=== PATIENT | female | born 1980 | race Caucasian/White ===

== ENCOUNTER 2025-01-21 08:40 | Inpatient (IN) | payer OTHER, SELFPAY ==
[2025-01-20 20:11] VITALS: BP 143/98
[2025-01-20 20:32] LABS: % Basophils 0.4 % (0-2); % Eosinophils 0.4 % (0-6); % Immature Granulocytes 0.5 % (0-0.5); % Lymphocytes 10.2 % (20.5-51.1); % Monocytes 6.9 % (1.7-9.3); % Neutrophils 81.6 % (42.2-75.2); Absolute Basophils 0.1 10^3/uL (0-0.2); Absolute Eosinophils 0.1 10^3/uL (0-0.7); Absolute Immature Granulocytes 0.1 10^3/uL (0-0.05); Absolute Lymphocytes 1.7 10^3/uL (1.2-3.4); Absolute Monocytes 1.1 10^3/uL (0.1-0.6); Absolute Neutrophils 13.4 10^3/uL (1.4-6.5); Hematocrit 42.1 % (37.0-47.0); Hemoglobin 14.3 g/dL (12.0-16.0); Mean Corpuscular Hgb 30.5 pg (27.0-31.0); Mean Corpuscular Volume 89.8 fL (81.0-99.0); Mean Platelet Volume 9.2 fL (7.4-10.4); Nucleated Red Blood Cells % 0 %; Platelet Count 258 10^3/uL (130-400); Red Blood Cell Count 4.69 10^6/uL (4.20-5.40); Red Cell Dist. Width 13.2 % (11.5-14.5); Urine Albumin Negative (Neg - Trace); Urine Bilirubin Negative (Negative); Urine Character Clear (Clear); Urine Color Yellow; Urine Glucose Negative (Negative); Urine Ketone 2+ (Negative); Urine Leukocyte Negative (Negative); Urine Nitrite Negative (Negative); Urine Occult Blood 3+ (Negative); Urine Specific Gravity 1.005 (<1.030); Urine Urobilinogen Negative (Neg - 1+); White Blood Cell Count 16.4 10^3/uL (4.8-10.8)
[2025-01-20 20:40] LABS: Urine Squamous Cell 16-20 /LPF (Few)
[2025-01-20 20:41] LABS: HCG, Serum Qualitative Screen Negative; Urine Bacteria Few (Negative)
[2025-01-20 20:53] LABS: ALT (SGPT) 19 U/L (0-35); AST (SGOT) 21 U/L (14-36); Albumin 4.3 g/dl (3.5-5.0); Alkaline Phosphatase 89 U/L (38-126); Blood Urea Nitrogen 6 mg/dl (7-17); Calcium 9.3 mg/dl (8.4-10.2); Carbon Dioxide 23 mmol/L (22-30); Chloride 105 mmol/L (98-107); Glucose 113 mg/dl (70-99); Lipase 511 U/L (23-300); Potassium 3.9 mmol/L (3.5-5.1); Sodium 136 mmol/L (135-145); Total Protein 7.7 g/dl (6.3-8.2); eGFR > 60.00
[2025-01-20 23:30] VITALS: BP 145/84
[2025-01-20 23:33] VITALS: BMI 28.3
[2025-01-21] VITALS (7 sets, daily range): BP systolic 122–143; BP diastolic 74–94; BMI 32.8
--- NOTE | 2025-01-21 00:07 | ED.GENMED ---
History of Present Illness
General
Chief Complaint: Abdominal Pain
Source: patient
Exam Limitations: none
Time Seen by Provider: 01/20/25 23:41
Nursing documentation reviewed up to this point in time: agreed with
History of Present Illness
History of Present Illness:
This is a 44-year-old woman with history of GERD, gastritis, ovarian cysts, kidney stones. Prior history of cholecystectomy, x 2. She presents with epigastric, right upper quadrant pain that began mildly 3 nights ago and has been
persistent, progressively worse and much worse throughout the day today. She admits to brief intermittent nausea but has had no vomiting. Moderately decreased appetite today but has been tolerating fluids well. She denies improvement nor
worsening of pain with oral intake. She denies back pain or flank pain. She denies lower abdominal pain. No dysuria nor urgency nor hematuria. She denies diarrhea nor constipation. No cough no shortness of breath. No fever no chills. She did
take 1 ibuprofen 2 days ago, other than this denies significant NSAID use. She admits to drinking alcohol 4 days ago celebrating her anniversary, other than this denies significant alcohol consumption.
She takes no prescription medicines on a daily basis. Takes tumeric for chronic joint pains. She had been maintained on Nexium in the past.
Last menstrual period January 02, normal and on time.
Past History
Past History
ED Past Medical History: GERD and Other (Ovarian cysts, Kidney stone)
ED Past Surgical History: Cholecystectomy, (X2) and Other (DNE, colonoscopy, endoscopy, exploratory laparotomy many, and wisdom teeth extraction)
Social History
Tobacco: Non-smoker
Alcohol: Occasional
Personal:
Living: with family
Employment: Not employed
Family History
Family History: Other (Noncontributory)
Phy Exam
Physical Exam
Physical Exam:
GENERAL: 44-year-old woman appears her stated age, awake and alert, pleasant, appears in no acute distress. Vital signs within normal limits
EYE: pupils equal. anicteric
NECK: Supple, nontender, no meningismus, no significant adenopathy.
ENT: oral mucosa is moist.
CARDIAC: Regular rate and rhythm. no murmur.
LUNGS: Clear breath sounds bilaterally, no acute respiratory distress, no wheezes/rales/rhonchi
ABDOMEN: Soft, nondistended, Mild to moderate tenderness epigastric as well as right upper quadrant without rebound or guarding no rigidity. no cvat. normoactive BS. No palpable masses.
NEUROLOGICAL: Alert and oriented x3, no focal neuro deficits. Gait is steady.
SKIN: Warm and dry, normal color, skin intact. No rash.
MUSCULOSKELETAL: No C/C/E. peripheral pulses are full and equal b/l. No palpable tenderness.
PSYCH: Normal and appropriate interaction.
Course
Orders/Labs/Results
Orders:
Orders
01/20/25 20:14
Test Result ONCE
01/20/25 20:25
Complete Blood Count/With Diff Urgent
Comprehensive Metabolic Panel Urgent
HCG, Serum Qualitative Screen Urgent
Lipase Urgent
Urinalysis Reflex To Culture Urgent
Date Specimen was Collected: 01/20/25
Time Specimen was Collected: 20:14
Urine Microscopic Reflex Cult Urgent
01/20/25 23:54
Pantoprazole [Protonix IV] 40 mg IV NOW STA
01/21/25 00:00
CT Abd/pelvis W Iv Cont Urgent
Reason For Exam: epigastric/RUQ pain x 3 d
01/21/25 00:23
Diphenhydramine [Benadryl] 50 mg IV NOW STA
Hydrocortisone Sod Succinate [Solu-Cortef] 200 mg IV NOW STA
Abnormal Lab Results
01/20/25
20:25
WBC 16.4 H 10^3/uL
(4.8-10.8)
Abs Immat Gran (auto) 0.1 H 10^3/uL
(0-0.05)
Absolute Neuts (auto) 13.4 H 10^3/uL
(1.4-6.5)
Absolute Monos (auto) 1.1 H 10^3/uL
(0.1-0.6)
Neutrophils % 81.6 H %
(42.2-75.2)
Lymphocytes % 10.2 L %
(20.5-51.1)
BUN 6 L mg/dl
(7-17)
Glucose 113 H mg/dl
(70-99)
Lipase 511 H U/L
(23-300)
Urine Ketones 2+ A
(Negative)
Ur Occult Blood Reflex 3+ A
(Negative)
Urine RBC 3-6 A /HPF
(0-2)
Urine Bacteria (Reflex) Few A
(Negative)
01/20/25 20:25
01/20/25 20:25
Vital Signs
Initial and Last Documented VS:
Initial Vital Signs
Temp Pulse Resp BP Pulse Ox
98.3 F 97 16 143/98 98
01/20/25 20:11 01/20/25 20:11 01/20/25 20:11 01/20/25 20:11 01/20/25 20:11
Last Documented Vital Signs
Temp Pulse Resp BP Pulse Ox
98.3 F 94 17 143/86 93
01/20/25 20:11 01/21/25 00:22 01/21/25 02:17 01/21/25 01:00 01/21/25 01:30
MDM/Problems Addressed
Differential Diagnosis Includes:
Concern for gastroduodenitis, pancreatitis, common bile duct stone, ureteral calculus, pyelonephritis, colitis.
As patient has had no lower abdominal pain and no appreciable tenderness to mid to lower abdomen, appendicitis, ovarian cyst are unlikely. She has had no vomiting, moving her bowels normally thus small bowel obstruction is much less likely.
Labs are remarkable for elevated white blood cell count of 16.4, chemistries are unremarkable save for mildly elevated lipase of 511. Other than this LFTs within normal limits. hCG is negative. Urinalysis positive for 3-6 RBCs, no definitive
evidence of UTI.
Will give an IV dose of Protonix. Patient has been offered pain medication which she declines.
Will check CT abdomen pelvis with IV contrast.
Upon review of list of allergies there is IV contrast dye. Patient states she had few red blotches to her neck after IV contrast in the past. No shortness of breath or cough. She admits that she is unsure if she has a true dye allergy.
Nonetheless will pretreat for contrast allergy.
*Radiology
Radiology exam reviewed: radiology read reviewed
*Pulse Oximetry
Patient hypoxic: no
*Critical Care Note
Total Time (30-74mins, 75-104mins- exclusive of procedures): Not Applicable
Update Note
Update Note:
02:40
CAT scan shows acute pancreatitis at head of the pancreas that appears to be secondary to acute duodenitis with concern for deep duodenal ulcer. There is no evidence of perforation, no evidence of free air.
Patient continues with mild to moderate tenderness epigastric, right upper quadrant.
Will plan to admit to hospital service, maintain n.p.o. status, IV fluids. Will continue PPI. Will trial an IV dose of Tylenol.
ED Attending Note
-
Portions of this chart may have been created with voice recognition software.� Occasional wrong word or��sound alike� substitutions may have occurred due to the inherent limitations of voice recognition software.
Discharge Plan
Departure
Patient Disposition: Admit
Date of Disposition: 01/21/25
Time of Disposition: 02:42
Admit to: Med/Surg
Admit to doctor: Artemio
Presentation/result/management discussed w/ accepting MD/DO: Hospitalist
Condition: Fair
Discharge Problem:
Acute pancreatitis, Acute duodenitis with concern for ulcer
Prescriptions:
No Action
esomeprazole magnesium [Nexium] 40 MG capsule,delayed release(DR/EC)
40 mg PO DAILY
ranitidine HCl [Zantac] 150 MG tablet
150 mg PO HS
vit27,[id number]-EW 1 EACH tablet
1 ea PO DAILY
nitrofurantoin monohyd/m-cryst 100 MG capsule
100 mg PO BID Qty: 9 0RF
Referrals:
NONE,* [Family Provider] -
Interventions
Interventions:
*Risk Screen - Suicide Last Done: 01/20/25 20:11
*General Assessment Last Done: 01/20/25 20:11
*Neglect/Abuse Screening Last Done: 01/20/25 20:11
*ED COVID-19 Vaccine History Last Done: 01/20/25 20:11
NX-Fxuyvg-Lrtiujhnds Assessment Last Done: 01/20/25 23:35
Discharge Date and Time
Print Language: MAORI
[2025-01-21] MEDS: PROTONIX IV 40 MG IV ×2 (00:18→08:22)
[2025-01-21] MEDS: BENADRYL 50 MG IV (00:29)
[2025-01-21] MEDS: SOLU-CORTEF 200 MG IV (00:29)
[2025-01-21] MEDS: NSS 1000 IV ×4 (02:55→21:04)
[2025-01-21] MEDS: OFIRMEV 100 IV ×2 (02:55→21:08)
--- NOTE | 2025-01-21 03:12 | HPS.HSE ---
Family Physician
-
Family Physician: * NONE
Chief Complaint
-
Abdominal pain
History of Present Illness
This is a 44-year-old female with past medical history of GERD presenting to the emergency department with approximately 4 days of epigastric abdominal pain now radiating to the back.
Patient reported that she had a drink with spouse 1 day prior to onset of symptoms. Prior to that she had not had a drink in 4 weeks. She states she rarely drinks at all. She reports onset of epigastric pain sense of fullness of the abdomen and
decreased appetite some bloating and very mild nausea without vomiting. She denies any diarrhea. She denies any fevers or chills. She denies any urinary symptoms. She felt she might of had recurrence of nephrolithiasis when the pain radiated to
the side and the back. She has a history of cholecystitis and is status post cholecystectomy several years ago. She also reports history of gastritis and GERD for which she had been previously on proton pump inhibitor (Nexium) with resultant side
effects including headache until she was transitioned to Pepcid which she eventually weaned off. She denies any any melena or hematochezia.
She denies family history of gallstones.
In the emergency department she was afebrile, blood pressure was 132/86 with a pulse of 94 and she was satting 1% on room air.
White count was 16.4, hemoglobin 14.3 and a platelet count of 258. Electrolytes were all normal. BUN/creatinine were normal. Lipase was elevated at 5 1. LFTs was normal. UA was negative. A CT of the abdomen pelvis showed acute pancreatitis of
the pancreatic head, linear abnormality in the head/uncinate that appears to be in contiguity with the duodenal wall thought due to an ulcer or duodenal diverticulitis as an underlying cause of pancreatitis
Medical History
Past Medical History
Past Medical History: Reports GERD and Other (nephrolithiasis)
Past Surgical History: Reports Cholecystectomy and
Social History
Tobacco: Non-smoker
Alcohol: Occasional
Drug: None
Family History
Family History: Not pertinent
Allergies / Home Medications
Allergies reflects when Allergies were last updated in [facility] [facility].
Home Medications with original date entered in [facility] [facility]
Allergy/Medication List:
Allergies
Allergy/AdvReac Type Severity Reaction Status Date / Time
meperidine HCl [From Demerol] Allergy Unknown Anaphylaxis Verified 08/29/19 01:44
doxycycline Allergy Unknown Verified 08/29/19 01:44
Sulfa (Sulfonamide Allergy Hives Verified 01/21/25 00:20
Antibiotics)
IV contrast dye Allergy Unknown Hives Uncoded 08/29/19 01:44
Home Medications
No Meds current home medications
Review of Systems
-
Constitutional: Reports No Symptoms
EENT: Reports No Symptoms
Respiratory: Reports No Symptoms
Cardiac: Reports No Symptoms
Abdomen/GI: Reports Abdominal Pain
: Reports No Symptoms
Musculoskeletal: Reports No Symptoms
Skin: Reports No Symptoms
Neurological: Reports No Symptoms
Endocrine: Reports No Symptoms
Hematologic/Lymphatic: Reports No Symptoms
Psych: Reports No Symptoms
Physical Exam
Vital Signs
Vital Signs
Temp Pulse Resp BP Pulse Ox
98.3 F 94 17 143/86 93
01/20/25 20:11 01/21/25 00:22 01/21/25 02:17 01/21/25 01:00 01/21/25 01:30
Physical Exam
General: Well Developed, Well Nourished and No Apparent Distress
HEENT: NormoCephalic, Moist mucous membranes and Atraumatic
Respiratory: Clear
Cardiac: S1/S2 and Regular Rhythm; No Murmur or Rub
GI: Soft, Non Tender, Non Distended and Normal Bowel Sounds; No Organomegaly
Rectal: Deferred by Provider
Musculoskeletal: No Clubbing, No Cyanosis and No Edema
Skin: No Rash
Neuro: Nonfocal/grossly intact
Hematologic/Lymphatic: No Lymphadenopathy
Laboratory Results
-
01/20/25 20:25
01/20/25 20:25
Laboratory Results
Total Bilirubin 1.0 mg/dl (0.2-1.3) 01/20/25 20:25
AST 21 U/L (14-36) 01/20/25 20:25
ALT 19 U/L (0-35) 01/20/25 20:25
Alkaline Phosphatase 89 U/L (38-126) 01/20/25 20:25
Lipase 511 U/L (23-300) H 01/20/25 20:25
Data Reviewed
-
CT Scan: Report Reviewed by me
Lab Data: Labs Reviewed by me
Old Records: Reviewed
Impression/Plan
-
IMPRESSION:
44 y.o healthy female with acute pancreatitis as well as possible duodenal ulcer/diverticulum as contributing to the pancreatitis. She reports occasional etoh, she has no gallstones, uses nsaids about 3 days a month for menstrual cramps. Has no
diabetes. She is s/p cholecystectomy.
PLAN:
1. Duodenal ulcer with pancreatitis - Stable. No perforation. No evidence of bleeding. No classical etiology of pancreatitis
- admit to med/surg observation
- pain control for now
- avoid nsaids
- famotidine iv bid
- h/o headaches to nexium and likely all ppis
- CT scan suggests a scope is recommended, npo for now except sips and ice chips
- GI consultation
DVT PPX - SCDs
[2025-01-21 05:58] LABS: Hematocrit 41.4 % (37.0-47.0); Hemoglobin 14.1 g/dL (12.0-16.0); Mean Corp Hgb Conc. 34.1 g/dL (33.0-37.0); Mean Corpuscular Hgb 30.9 pg (27.0-31.0); Mean Corpuscular Volume 90.6 fL (81.0-99.0); Mean Platelet Volume 9.8 fL (7.4-10.4); Platelet Count 273 10^3/uL (130-400); Red Blood Cell Count 4.57 10^6/uL (4.20-5.40); Red Cell Dist. Width 13.2 % (11.5-14.5); White Blood Cell Count 14.7 10^3/uL (4.8-10.8)
[2025-01-21 06:25] LABS: Blood Urea Nitrogen 7 mg/dl (7-17); Calcium 9.2 mg/dl (8.4-10.2); Carbon Dioxide 24 mmol/L (22-30); Chloride 107 mmol/L (98-107); Estimated Creatinine Clearance 91 ml/min; Glucose 141 mg/dl (70-99); Potassium 4.6 mmol/L (3.5-5.1); Sodium 139 mmol/L (135-145); eGFR > 60.00
[2025-01-21] MEDS: NSS (PRESERVATIVE FREE) 10 ML IV (08:21)
[2025-01-21] MEDS: TYLENOL 650 MG PO (08:23)
[2025-01-21] MEDS: ZOSYN 50 IV ×3 (09:12→20:04)
[2025-01-21] MEDS: PROTONIX 100 IV ×2 (10:51→20:04)
--- NOTE | 2025-01-21 11:02 | CON.GI ---
Consultation
-
Date/Time Consultation Requested: 01/21/2025
Date/Time Consultation Performed: 01/21/2025
Requesting Provider: Dr. Lunsford
Performing Provider: Dr. Sanders
Reason for Consultation: Abdominal pain
Medical History
Chief Complaint / HPI
Chief Complaint: Right-sided abdominal pain
History of Present Illness:
44-year-old female with no significant past medical history except history of previous GERD and gallstones status postcholecystectomy 2012 presenting with complaints of right upper quadrant abdominal pain starting last Wednesday. As per patient,
she was doing well prior to that and last Wednesday started having achy sensation in the right upper quadrant/epigastric area and radiating to the right upper back, this progressed over last few days and was unbearable and she came to the emergency
room. She did report nausea but no vomiting. She has history of acid reflux in her 20s, at that time she had an endoscopy and was told that she had small ulcers, tried Nexium for couple years but that gave her headache and diarrhea, it was
switched to Zantac and subsequently to Pepcid. She did take Pepcid couple of years ago but her acid reflux has not bothered her and she has not been taking any medication on a regular basis. Her bowel pattern is usually 1 formed stool a day, no
pushing or straining, good evacuation. No blood in the stool or black stool. No blood loss of appetite, unintentional weight loss or NSAID use. She takes ibuprofen 600 mg twice a day during her menstrual cycle which is only for about 2 to 3 days
and last time she took it was first week of December. She does not take NSAIDs on a regular basis. No aspirin or steroid use.
In the emergency room, she was noted to have leukocytosis of 16.4 on admission, normal hemoglobin. Lipase was 511. LFTs in normal range.
CT scan of the abdomen and pelvis with IV contrast only, inflammatory change adjacent to the 2nd and 3rd portion of duodenum, small bubbles of gas adjacent to the second portion, cannot rule out localized perforation. Significant inflammation
around duodenum and pancreatic head as well, likely secondary involvement of the pancreas.
History of Lyme's disease in 2015. History of cholecystectomy in 2012 for gallstones and she also apparently had bile duct stone and cannot recall if she had ERCP.
Reports having upper endoscopy and colonoscopy in 2016 near [facility], at that time no ulcers and colonoscopy was clear. She also had endoscopy in her 20s that showed small ulcers.
Past Medical History
Past Medical History: None
Past Surgical History: Cholecystectomy
Social History
Tobacco: Non-Smoker
Alcohol: Occasional
Family History
Family History: Reviewed & Not Pertinent (Paternal uncle with colon cancer.)
Allergies / Home Medications
Allergy/AdvReac Type Severity Reaction Status Date / Time
meperidine HCl [From Demerol] Allergy Unknown Anaphylaxis Verified 08/29/19 01:44
doxycycline Allergy Unknown Verified 08/29/19 01:44
Iodinated Contrast Media Allergy Hives Verified 01/21/25 08:57
Sulfa (Sulfonamide Allergy Hives Verified 01/21/25 00:20
Antibiotics)
IV contrast dye Allergy Unknown Hives Uncoded 08/29/19 01:44
�Medication �Instructions �Recorded
No Meds [No Current Medications] 01/21/25
Review of Systems
-
All other systems: A 12 pt ROS was Negative except as stated above in HPI
Vital Signs
Temp Pulse Resp BP Pulse Ox
97.6 F 69 28 122/74 97
01/21/25 07:00 01/21/25 07:00 01/21/25 07:00 01/21/25 07:00 01/21/25 07:00
Physical Exam
Exam
Respiratory: Clear
Cardiac: S1/S2 and Regular Rhythm
GI: Soft and Tender (Tenderness in the right upper quadrant area)
Results
WBC 14.7 10^3/uL (4.8-10.8) H 01/21/25 05:12
Hgb 14.1 g/dL (12.0-16.0) 01/21/25 05:12
Hct 41.4 % (37.0-47.0) 01/21/25 05:12
MCV 90.6 fL (81.0-99.0) 01/21/25 05:12
Plt Count 273 10^3/uL (130-400) 01/21/25 05:12
Absolute Neuts (auto) 13.4 10^3/uL (1.4-6.5) H 01/20/25 20:25
Sodium 139 mmol/L (135-145) 01/21/25 05:12
Potassium 4.6 mmol/L (3.5-5.1) 01/21/25 05:12
Chloride 107 mmol/L (98-107) 01/21/25 05:12
Carbon Dioxide 24 mmol/L (22-30) 01/21/25 05:12
BUN 7 mg/dl (7-17) 01/21/25 05:12
Creatinine 0.8 mg/dL (0.6-1.0) 01/21/25 05:12
Calcium 9.2 mg/dl (8.4-10.2) 01/21/25 05:12
Total Bilirubin 1.0 mg/dl (0.2-1.3) 01/20/25 20:25
AST 21 U/L (14-36) 01/20/25 20:25
ALT 19 U/L (0-35) 01/20/25 20:25
Alkaline Phosphatase 89 U/L (38-126) 01/20/25 20:25
Lipase 511 U/L (23-300) H 01/20/25 20:25
Diagnostic Image Results:
Prior GI Procedures:
EGD:
Colonoscopy:
Assessment / Plan
-
44-year-old female with previous history of gallstones status post cholecystectomy, history of GERD, intolerant to Nexium due to diarrhea and headache but has not needed any H2 blockers or PPIs recently presenting with right upper quadrant abdominal
pain in the last couple of days, noted to have leukocytosis and mildly elevated lipase, CT scan showing possible duodenitis/duodenal ulcer with ? Contained perforation. No regular NSAID use, remote history of ulcer disease on EGD in her 20s.
Endoscopy in 2016 unremarkable as per patient.
-Duodenitis/ulcer with contained perforation
Currently hemodynamically stable.
No anemia, LFTs in normal range. Mild elevated lipase but clinically not suggesting pancreatitis. She is status post cholecystectomy.
N.p.o. IV fluids per hospitalist team.
Will start IV Protonix drip.
Currently on Zosyn possible contained perforation of the duodenum.
Consulted surgery for this possible contained perforation.
Once her pain is better, she may need upper GI study and subsequently upper endoscopy to evaluate the duodenum.
Will follow
-
-
Thank you for consultation and allowing me to participate in the patient's care. Please call the continuous dryout operator GI physician during the after hours with any questions or concerns.
--- NOTE | 2025-01-21 11:08 | CON.GS ---
Consultation
-
Reason for Consultation: perforated ulcer
Medical History
-
Chief Complaint: abdominal pain
History of Present Illness:
44 yo F with 24 to 48 hrs of epigastric pain radiating to back leading to evaluation in the ER. Vitals fine. WBC elevated at 14.7 from 16.7. Lipase elevated at 511. CTA/P shows inflammation of duodenum with a couple of bubbles of nearby air and
inflamed nearby pancreatic head, being most consistent with perforated duodenal ulcer with localized/contained perforation. She has no known history of peptic ulcer disease, however she has a remote history of GERD. In the remote past she had
intermittently been on 8 blockers. She also takes a few days worth of higher dose NSAIDs per month for pain full menses. She rarely drinks. Has a history of cholecystectomy. I was consulted for surgical opinion regarding her situation. Of note,
since being in the hospital she has been put on IV fluids, made n.p.o., put on empiric Zosyn and proton pump inhibitors.
Past Medical History
Past Medical History: GERD
Past Surgical History: Cholecystectomy and
Social History
Tobacco: Non-Smoker
Alcohol: Occasional
Family History
Family History: Reviewed & Not Pertinent
Allergies / Home Medications
Allergy/AdvReac Type Severity Reaction Status Date / Time
meperidine HCl [From Demerol] Allergy Unknown Anaphylaxis Verified 08/29/19 01:44
doxycycline Allergy Unknown Verified 08/29/19 01:44
Iodinated Contrast Media Allergy Hives Verified 01/21/25 08:57
Sulfa (Sulfonamide Allergy Hives Verified 01/21/25 00:20
Antibiotics)
IV contrast dye Allergy Unknown Hives Uncoded 08/29/19 01:44
�Medication �Instructions �Recorded �Confirmed �Type
No Meds [No Current Medications] 01/21/25 01/21/25 History
Review of Systems
-
A 10 point review of systems was completed, and was negative except as per HPI.
Physical Exam
Vital Signs
Temp Pulse Resp BP Pulse Ox
97.6 F 69 28 122/74 97
01/21/25 07:00 01/21/25 07:00 01/21/25 07:00 01/21/25 07:00 01/21/25 07:00
01/20/25 01/21/25 01/22/25
06:59 06:59 06:59
Actual Weight 84.028 kg
Body Mass Index (BMI) 32.8
Lab Results
01/21/25 05:12
01/21/25 05:12
WBC 14.7 10^3/uL (4.8-10.8) H 01/21/25 05:12
Hgb 14.1 g/dL (12.0-16.0) 01/21/25 05:12
Hct 41.4 % (37.0-47.0) 01/21/25 05:12
Plt Count 273 10^3/uL (130-400) 01/21/25 05:12
Abs Immat Gran (auto) 0.1 10^3/uL (0-0.05) H 01/20/25 20:25
Neutrophils % 81.6 % (42.2-75.2) H 01/20/25 20:25
Physical Exam
General: Well Developed
HEENT: Normocephalic
Respiratory: Clear
Cardiac: S1/S2
GI: Non Distended and Tender (Mid abdominal to deep palpation, no guarding or rebound)
Skin: Warm and Dry
Neuro: AO x 3
Psych: Calm
Data Reviewed
-
CT Scan: Image Personally Visualized and interpreted, Report Reviewed by me and Discussed with Patient
Labs: Labs Reviewed by me and Discussed with Family
Assessment / Plan
-
44-year-old female with probable locally perforated duodenal ulcer without signs of sepsis or peritonitis. No need for urgent surgical intervention at this point. Agree with current measures including IV hydration, diet restriction, IV
antibiotics, PPIs, and daily abdominal exams. Ideally, the patient received an NG tube to diminish exposure of the area to gastric fluid. I have discussed this with the patient over the phone and she is agreeable. Anticipate upper GI study over
the next few days.
--- NOTE | 2025-01-21 11:31 | W.PN.UPDATE ---
Update Note
Progress Note Update
Patient seen and examined at bedside. Nonbillable note. Admitted past midnight
44-year-old female came with abdominal pain. Discussed with radiology, probable contained perforated duodenal ulcer. Also discussed with GI and surgery. NPO. PPI. Fluids. Start Zosyn. If symptoms worsen will need stat surgical evaluation.
Avoid NSAIDs. Uses nsaids about 3 days a month for menstrual cramps
General: Well Developed, Well Nourished and No Apparent Distress
HEENT: NormoCephalic, Moist mucous membranes and Atraumatic
Respiratory: Clear
Cardiac: S1/S2 and Regular Rhythm; No Murmur or Rub
GI: Soft, Tender, Non Distended and diminish Bowel Sounds
Musculoskeletal: No Edema
Neuro: Nonfocal/grossly intact
Hematologic/Lymphatic: No Lymphadenopathy
[2025-01-21] MEDS: ANESTHETIC LOZENGE 1 LOZENGE PO (14:37)
[2025-01-21] MEDS: NSS (PRESERVATIVE FREE) 0.25 ML IV (20:23)
[2025-01-21] MEDS: ATIVAN 0.5 MG IV (20:24)
[2025-01-22] MEDS: ZOSYN 50 IV ×4 (02:14→20:04)
[2025-01-22] MEDS: ZOFRAN 4 MG IV ×3 (03:22→20:09)
[2025-01-22] MEDS: NSS 1000 IV ×4 (03:26→23:23)
[2025-01-22] MEDS: PROTONIX 100 IV ×2 (06:04→16:34)
[2025-01-22 07:17] LABS: % Basophils 0.4 % (0-2); % Eosinophils 1.2 % (0-6); % Immature Granulocytes 0.3 % (0-0.5); % Lymphocytes 12.4 % (20.5-51.1); % Monocytes 7.2 % (1.7-9.3); % Neutrophils 78.5 % (42.2-75.2); Absolute Basophils 0.1 10^3/uL (0-0.2); Absolute Eosinophils 0.1 10^3/uL (0-0.7); Absolute Lymphocytes 1.5 10^3/uL (1.2-3.4); Absolute Monocytes 0.9 10^3/uL (0.1-0.6); Absolute Neutrophils 9.3 10^3/uL (1.4-6.5); Hematocrit 36.8 % (37.0-47.0); Hemoglobin 12.2 g/dL (12.0-16.0); Mean Corp Hgb Conc. 33.2 g/dL (33.0-37.0); Mean Corpuscular Hgb 30.3 pg (27.0-31.0); Mean Corpuscular Volume 91.5 fL (81.0-99.0); Mean Platelet Volume 9.8 fL (7.4-10.4); Nucleated Red Blood Cells % 0 %; Platelet Count 250 10^3/uL (130-400); Red Blood Cell Count 4.02 10^6/uL (4.20-5.40); Red Cell Dist. Width 13.4 % (11.5-14.5); White Blood Cell Count 11.8 10^3/uL (4.8-10.8)
[2025-01-22 07:50] VITALS: BP 122/75
[2025-01-22 07:57] LABS: ALT (SGPT) 15 U/L (0-35); AST (SGOT) 16 U/L (14-36); Albumin 3.4 g/dl (3.5-5.0); Alkaline Phosphatase 71 U/L (38-126); Blood Urea Nitrogen 8 mg/dl (7-17); Carbon Dioxide 21 mmol/L (22-30); Chloride 112 mmol/L (98-107); Estimated Creatinine Clearance 91 ml/min; Glucose 76 mg/dl (70-99); Lipase 180 U/L (23-300); Potassium 3.9 mmol/L (3.5-5.1); Sodium 140 mmol/L (135-145); Total Bilirubin 0.9 mg/dl (0.2-1.3); Total Protein 6.1 g/dl (6.3-8.2); eGFR > 60.00
[2025-01-22] MEDS: OFIRMEV 100 IV (09:46)
--- NOTE | 2025-01-22 09:57 | W.PN.HOSP.TC ---
Today's Communication/Plan
-
NG
IV PPI
IV Antibiotics
IVF
NPO
Assessment / Plan
Assessment / Plan
Physical exam:
General: Well Developed, Well Nourished and No Apparent Distress
HEENT: Normocephalic, Moist mucous membranes and Atraumatic. NG tube
Respiratory: Clear
Cardiac: S1/S2
GI: Soft, Tender, Non Distended and good Bowel Sounds
Musculoskeletal: No Edema
Neuro: Nonfocal/grossly intact
Psych: no agitation
44 y/o female with contained penetrating posterior duodenal ulcer
#Duodenitis/ulcer with contained perforation
met sepsis criteria on admission POA
Localized peritonitis
continue NGT decompression and bowel rest
renew PPI gtt
WBC is coming
No fevers
continue Zosyn for empiric abx
Followed by surgery and GI doctors
Appreciate GI & surgery help
# GERD and gallstones status postcholecystectomy 2012
c/w IV PPI gtt
Total time spent to see the patient, examine the patient, review data and lab results, discuss treatment plan with patient and nursing staff around 55 minutes
Anticipated Discharge: > 48 hours
Subjective/Interval History
-
Date of Service: January 22, 2025
Pt reported panic like feeling last night from NG tube
she reports pain in abdomen but less than before
She is passing gas
Objective Data
-
Labs:
Laboratory Results
01/22/25
06:43
WBC 11.8 H
Hgb 12.2
Hct 36.8 L
Plt Count 250
Sodium 140
Potassium 3.9
Chloride 112 H
Carbon Dioxide 21 L
BUN 8
Creatinine 0.8
Glucose 76
Calcium 8.0 L
Total Bilirubin 0.9
AST 16
ALT 15
Alkaline Phosphatase 71
Vital Signs:
Vital Signs
Temp Pulse Resp BP Pulse Ox
98.2 F 84 18 122/75 97
01/22/25 07:50 01/22/25 07:50 01/22/25 07:50 01/22/25 07:50 01/22/25 07:50
I&O
01/21/25 01/22/25 01/23/25
06:59 06:59 06:59
Intake Total 2240 / 2240
Output Total 200 / 200
Balance 2039
--- NOTE | 2025-01-22 10:35 | W.PN.GI.CBS2 ---
Today's Communication / Plan
-
-Duodenitis/ulcer with contained perforation now status post NG tube placement, bilious drainage noted
Currently hemodynamically stable.
Hemoglobin in normal range.
LFTs in normal range. Mild elevated lipase but clinically not suggesting pancreatitis. She is status post cholecystectomy.
N.p.o, NG tube to low intermittent suction. IV fluids per hospitalist team.
Continue IV Protonix drip.
Currently on Zosyn possible contained perforation of the duodenum.
Noted surgery evaluation, for upper GI study in the next few days.
Eventually she will need upper endoscopy to evaluate the duodenum.
Patient reports previous history of diarrhea with Nexium, currently on pantoprazole, did have some loose stool yesterday but will monitor. No headaches.
Will follow
Assessment / Plan
-
44-year-old female with previous history of gallstones status post cholecystectomy, history of GERD, intolerant to Nexium due to diarrhea and headache but has not needed any H2 blockers or PPIs recently presenting with right upper quadrant abdominal
pain in the last couple of days, noted to have leukocytosis and mildly elevated lipase, CT scan showing possible duodenitis/duodenal ulcer with ? Contained perforation. No regular NSAID use, remote history of ulcer disease on EGD in her 20s.
Endoscopy in 2016 unremarkable as per patient.
-Duodenitis/ulcer with contained perforation now status post NG tube placement, bilious drainage noted
Currently hemodynamically stable.
Hemoglobin in normal range.
LFTs in normal range. Mild elevated lipase but clinically not suggesting pancreatitis. She is status post cholecystectomy.
N.p.o, NG tube to low intermittent suction. IV fluids per hospitalist team.
Continue IV Protonix drip.
Currently on Zosyn possible contained perforation of the duodenum.
Noted surgery evaluation, for upper GI study in the next few days.
Eventually she will need upper endoscopy to evaluate the duodenum.
Will follow
Subjective
Subjective
Date of Service: January 22, 2025
Patient continues to have upper abdominal discomfort, had couple of soft looser stool yesterday but not this morning. Leukocytosis trending down. No fevers or chills.
NG tube placed 01/21 with about 300 cc of bilious material in the canister.
Objective
Data Reviewed
Laboratory Data:
Laboratory Results
01/22/25 06:43
01/22/25 06:43
Laboratory Results
Total Bilirubin 0.9 mg/dl (0.2-1.3) 01/22/25 06:43
AST 16 U/L (14-36) 01/22/25 06:43
ALT 15 U/L (0-35) 01/22/25 06:43
Alkaline Phosphatase 71 U/L (38-126) 01/22/25 06:43
Lipase 180 U/L (23-300) 01/22/25 06:43
Vital Signs and I&O:
Vital Signs
Temp Pulse Resp BP Pulse Ox
98.2 F 84 18 122/75 97
01/22/25 07:50 01/22/25 07:50 01/22/25 07:50 01/22/25 07:50 01/22/25 07:50
I&O
01/21/25 01/22/25 01/23/25
06:59 06:59 06:59
Intake Total 2240 / 2240
Output Total 200 / 200
Balance 2039 / 2039
Physical Exam
Physical Exam
GI: Soft, Tender (Discomfort on palpation of the upper abdomen) and Normal Bowel Sounds
--- NOTE | 2025-01-22 10:51 | W.PN.GS2 ---
Today's Communication / Plan
-
`
Assessment / Plan
-
Assessment: 44 y/o female with contained penetrating posterior duodenal ulcer
AFVSS
WBC improved to 11, lipase normalized
no signs of GIB
abdominal tenderness/pain stable, no generalized peritonitis
Plan: continue NGT decompression and bowel rest
renew PPI gtt
continue Zosyn for empiric abx
UGI contrast imaging in 24-48hrs pending NGT outputs and clinical course
Subjective Data
-
Date of Service: January 22, 2025
pt seen and examined
persistent epigastric abdominal pain radiating into back; improved from time of presentation but stable since being admitted
no nausea
NGT bothersome but pt tolerating
Objective Data
-
Intake and Output
01/21/25 01/22/25 01/23/25
06:59 06:59 06:59
Intake Total 2240 / 2240
Output Total 200 / 200
Balance 2039 / 2040
Intake:
Oral fluids 120 / 120
IV fluids (Total) 1800 / 1800
IV piggybacks 320 / 320
Amount instilled into GI Tube ( 0 / 0
Total)
[place] Sump 0 / 0
Output:
Gastrointestinal tube output ( 200 / 200
Total)
[place] Sump 200 / 200
Other:
Number of approximated SMALL 5
amounts of urine
Number of approximated MODERATE 3
amounts of urine
Vital Signs
Temp Pulse Resp BP Pulse Ox
98.2 F 84 18 122/75 97
01/22/25 07:50 01/22/25 07:50 01/22/25 07:50 01/22/25 07:50 01/22/25 07:50
Lab Results
01/22/25 06:43
01/22/25 06:43
Calcium 8.0 mg/dl (8.4-10.2) L 01/22/25 06:43
Total Bilirubin 0.9 mg/dl (0.2-1.3) 01/22/25 06:43
AST 16 U/L (14-36) 01/22/25 06:43
ALT 15 U/L (0-35) 01/22/25 06:43
Alkaline Phosphatase 71 U/L (38-126) 01/22/25 06:43
Total Protein 6.1 g/dl (6.3-8.2) L D 01/22/25 06:43
Albumin 3.4 g/dl (3.5-5.0) L 01/22/25 06:43
Physical Exam
-
NAD AAOx3
ABD: soft, ND, TTP localized to epigastrium/RUQ with some localized guarding; remaining abdomen nontender
NGT in place with few 100mL bilious contents in canister
[2025-01-22 15:19] VITALS: BP 130/91
[2025-01-22] MEDS: ATIVAN 0.5 MG IV (21:49)
[2025-01-22] MEDS: NSS (PRESERVATIVE FREE) 0.25 ML IV (21:52)
[2025-01-22 23:15] VITALS: BP 128/74
[2025-01-23] MEDS: ZOSYN 50 IV ×4 (01:43→20:59)
[2025-01-23] MEDS: PROTONIX 100 IV ×3 (01:44→22:45)
[2025-01-23] MEDS: NSS 1000 IV (06:22)
[2025-01-23 06:48] LABS: % Basophils 0.6 % (0-2); % Immature Granulocytes 1.6 % (0-0.5); % Lymphocytes 16.3 % (20.5-51.1); % Monocytes 6.9 % (1.7-9.3); % Neutrophils 72.6 % (42.2-75.2); Absolute Basophils 0.1 10^3/uL (0-0.2); Absolute Eosinophils 0.2 10^3/uL (0-0.7); Absolute Immature Granulocytes 0.1 10^3/uL (0-0.05); Absolute Lymphocytes 1.4 10^3/uL (1.2-3.4); Absolute Monocytes 0.6 10^3/uL (0.1-0.6); Absolute Neutrophils 6.3 10^3/uL (1.4-6.5); Hematocrit 37.2 % (37.0-47.0); Hemoglobin 12.4 g/dL (12.0-16.0); Mean Corp Hgb Conc. 33.3 g/dL (33.0-37.0); Mean Corpuscular Hgb 30.7 pg (27.0-31.0); Mean Corpuscular Volume 92.1 fL (81.0-99.0); Nucleated Red Blood Cells % 0 %; Platelet Count 258 10^3/uL (130-400); Red Blood Cell Count 4.04 10^6/uL (4.20-5.40); Red Cell Dist. Width 13.1 % (11.5-14.5); White Blood Cell Count 8.7 10^3/uL (4.8-10.8)
[2025-01-23 07:25] LABS: Blood Urea Nitrogen 5 mg/dl (7-17); Carbon Dioxide 17 mmol/L (22-30); Chloride 111 mmol/L (98-107); Estimated Creatinine Clearance 104 ml/min; Glucose 52 mg/dl (70-99); Potassium 4.2 mmol/L (3.5-5.1); Sodium 137 mmol/L (135-145); eGFR > 60.00
[2025-01-23 07:35] VITALS: BP 140/81
[2025-01-23] MEDS: DEXTROSE 50% SYRINGE 12.5 GRAMS IV (08:04)
[2025-01-23 08:31] LABS: Glucose - Point of Care 114 mg/dl (70-99)
--- NOTE | 2025-01-23 08:55 | W.PN.HOSP.TC ---
Today's Communication/Plan
-
Good clinical improvement
Change IVF to dextrose gtt
f/w surgery recommendations
Assessment / Plan
Assessment / Plan
Physical exam:
General: Well Developed, Well Nourished and No Apparent Distress
HEENT: Normocephalic, Moist mucous membranes and Atraumatic. NG tube
Respiratory: Clear
Cardiac: S1/S2
GI: Soft, Tender, Non Distended and good Bowel Sounds
Musculoskeletal: No Edema
Neuro: Nonfocal/grossly intact
Psych: no agitation
44 y/o female with contained penetrating posterior duodenal ulcer
# hypoglycemia due to NPO status
Change to IVF to D5NS and give one time dose of dextrose 50.
#Duodenitis/ulcer with contained perforation
met sepsis criteria on admission POA
Good clinical improvement in last 48 hours.
Localized peritonitis
continue NGT decompression and bowel rest
renew PPI gtt
WBC is normal.
No fevers
continue Zosyn for empiric abx
Followed by surgery and GI doctors
Appreciate GI & surgery help
# GERD and gallstones status postcholecystectomy 2012
c/w IV PPI gtt
Total time spent to see the patient, examine the patient, review data and lab results, discuss treatment plan with patient and nursing staff around 55 minutes
Anticipated Discharge: > 48 hours
Subjective/Interval History
-
Date of Service: January 23, 2025
less abd pain
No chest pain
No nausea
\\Passing gas
Objective Data
-
Labs:
Laboratory Results
01/23/25
05:47
WBC 8.7
Hgb 12.4
Hct 37.2
Plt Count 258
Sodium 137
Potassium 4.2
Chloride 111 H
Carbon Dioxide 17 L
BUN 5 L
Creatinine 0.7
Glucose 52 L*
Calcium 8.0 L
Vital Signs:
Vital Signs
Temp Pulse Resp BP Pulse Ox
98.6 F 73 18 140/81 96
01/23/25 07:35 01/23/25 07:35 01/23/25 07:35 01/23/25 07:35 01/23/25 07:35
I&O
01/22/25 01/23/25 01/24/25
06:59 06:59 06:59
Intake Total 2240 / 2240 2019 / 2019
Output Total 200 / 200 700 / 700
Balance 2039 / 2039 1320 / 1320
--- NOTE | 2025-01-23 09:15 | W.PN.GS2 ---
Addendum entered and electronically signed by Emery Ramirez MD 01/23/25 17:00:
UGI reviewed which demonstrates a persistent leak in what appears to be D3. Leak seen on delayed imaging after increased pressurization as contrast is progressing past the LT. Small, pinhole and appears to be contained within the head of the
pancreas. She has demonstrated clinical improvement as a relates to her pain, hemodynamic stability, and normalization of her WBC. Recommend continue medical management with bowel rest, NGT decompression, and antibiotics. Consideration of
antifungal therapy given the proximal nature of her perforation, however, given her improvement in symptoms and normalization of WBC on her current antibiotics (Zosyn), we likely treating what contamination she has had. Will engage GI for potential
endoscopic management (internal drainage versus closure?). However, given the acute/fresh nature of this leak as well as its difficult anatomic location and overall clinical improvement, tentative plan at this time to repeat her UGI approximately 1
week out from her initial inciting event. Patient updated.
Original Note:
Today's Communication / Plan
-
-- UGI
Assessment / Plan
-
Assessment: Patient is a 44 yo F p/w contained penetrating posterior duodenal ulcer
AFVSS
WBC normalized, lipase previously normalized
Clinical and lab improvement. No signs of GIB. Plan for UGI today to r/o leak and stricture, possible NGT removal pending results
Plan:
-- UGI
-- Continue NGT decompression and bowel rest
-- Can transition to PPI IV BID
-- Continue Zosyn for empiric abx
Subjective Data
-
Date of Service: January 23, 2025
Epigastric abdominal discomfort improved, but not completely resolved. Mild nausea, no emesis. Passing flatus and multiple loose bowel movements. Afebrile.
Objective Data
-
Intake and Output
01/22/25 01/23/25 01/24/25
06:59 06:59 06:59
Intake Total 2239
Output Total 200 / 200 700 / 700
Balance 2039 1320 / 1320
Intake:
Oral fluids 120 / 120
IV fluids (Total) 1800 / 1800 1919
IV piggybacks 320 / 320 100 / 100
Amount instilled into GI Tube ( 0 / 0
Total)
[place] Sump 0 / 0
Output:
Gastrointestinal tube output ( 200 / 200 700 / 700
Total)
[place] Sump 200 / 200 700 / 700
Other:
Number of approximated SMALL 5
amounts of urine
Number of approximated MODERATE 3
amounts of urine
Vital Signs
Temp Pulse Resp BP Pulse Ox
98.6 F 73 18 140/81 96
01/23/25 07:35 01/23/25 07:35 01/23/25 07:35 01/23/25 07:35 01/23/25 07:35
Lab Results
01/23/25 05:47
01/23/25 05:47
Calcium 8.0 mg/dl (8.4-10.2) L 01/23/25 05:47
Total Bilirubin 0.9 mg/dl (0.2-1.3) 01/22/25 06:43
AST 16 U/L (14-36) 01/22/25 06:43
ALT 15 U/L (0-35) 01/22/25 06:43
Alkaline Phosphatase 71 U/L (38-126) 01/22/25 06:43
Total Protein 6.1 g/dl (6.3-8.2) L D 01/22/25 06:43
Albumin 3.4 g/dl (3.5-5.0) L 01/22/25 06:43
Physical Exam
-
Gen: NAD
HEENT: dark bilious effluent
Abd: soft, mild tenderness in epigastrium, ND, non-peritoneal
Patient has a kebede catheter: No
Patient has a central line: No
--- NOTE | 2025-01-23 09:45 | W.PN.GI.CBS2 ---
Today's Communication / Plan
-
Agree with surgical recs for UGI series today
C/w PPI
Recommend EGD outpatient basis 8-12wks time. D/c paper work updated
No new recs GI will sign off please call for ?
Assessment / Plan
-
44-year-old female with previous history of gallstones status post cholecystectomy, history of GERD, intolerant to Nexium due to diarrhea and headache but has not needed any H2 blockers or PPIs recently presenting with right upper quadrant abdominal
pain in the last couple of days, noted to have leukocytosis and mildly elevated lipase, CT scan showing possible duodenitis/duodenal ulcer with ? Contained perforation. No regular NSAID use, remote history of ulcer disease on EGD in her 20s.
Endoscopy in 2016 unremarkable as per patient.
Impression
-Duodenitis/ulcer with contained perforation now status post NG tube placement, bilious drainage noted
Currently hemodynamically stable.
Hemoglobin in normal range.
LFTs in normal range. Mild elevated lipase but clinically not suggesting pancreatitis. She is status post cholecystectomy.
N.p.o, NG tube to low intermittent suction. IV fluids per hospitalist team.
Continue IV Protonix drip.
Currently on Zosyn possible contained perforation of the duodenum.
Agree with surgical recs for UGI with gastrograffin today
At this juncture no indication for inpatient EGD. Will arrange outpatient basis in 8-12 wks. She used to see Dr Marion but agreeable to transition to GI at . Will sign off please call for questions
Subjective
Subjective
Date of Service: January 23, 2025
Her abd pain is now 4 out of 10 in intensity. She has some nausea no vomiting. Not much output through NGT
Objective
Data Reviewed
Laboratory Data:
Laboratory Results
01/23/25 05:47
01/23/25 05:47
Laboratory Results
Total Bilirubin 0.9 mg/dl (0.2-1.3) 01/22/25 06:43
AST 16 U/L (14-36) 01/22/25 06:43
ALT 15 U/L (0-35) 01/22/25 06:43
Alkaline Phosphatase 71 U/L (38-126) 01/22/25 06:43
Lipase 180 U/L (23-300) 01/22/25 06:43
Vital Signs and I&O:
Vital Signs
Temp Pulse Resp BP Pulse Ox
98.6 F 73 18 140/81 96
01/23/25 07:35 01/23/25 07:35 01/23/25 07:35 01/23/25 07:35 01/23/25 07:35
I&O
01/22/25 01/23/25 01/24/25
06:59 06:59 06:59
Intake Total 2240 / 2240 2019
Output Total 200 / 200 700 / 700
Balance 2039 / 2039 1320 / 1320
Physical Exam
Physical Exam
GEN: No acute distress, conversant, pleasant
HEENT: anicteric, extraocular movements intact, clear oropharynx without exudates, NGT in nose
GI: soft, obese mildly distended, not tender to palpation, normal active bowel sounds, no hepatosplenomegaly
EXT: warm, well perfused, no edema bilaterally
NEURO: AAOx3, non-focal
[2025-01-23] MEDS: D5/0.9% SODIUM CHLORIDE 1000 IV ×2 (10:38→20:16)
[2025-01-23] MEDS: BENADRYL 50 MG IV (13:54)
--- NOTE | 2025-01-23 15:25 | CM ---
manager cash reviewed patient's chart and met with patient and patient lives with spouse and children in a 2 story home, patient is independent with adl's and ambulation, no dme, patient drives, home with family when stable.
PCP: None List of [facility] PCP's provided to patient and [facility] contact information.
Pharmacy: [facility] in [place].
--- NOTE | 2025-01-23 15:39 | PN.CDI ---
Addendum entered and electronically signed by Rosalba De La Torre MD 01/24/25 06:38:
Acute duodenal ulcer
Original Note:
CDI
- -
CDI:
Physician Documentation Request
Admit Date: 01/21/25 08:40
Dear Doctor Wil,
Please review the following and provide your response in the progress notes.
Clinical Indicators:
PN, 01/23
#...contained penetrating posterior duodenal ulcer
#Duodenitis/ulcer with contained perforation
#...Localized peritonitis
Please clarify which of the following accurately represents the acuity of the perforated duodenal ulcer:
Acute duodenal ulcer
Acute on Chronic duodenal ulcer
Other(please specify)
Use of terms such as suspected, likely, concern for, or probable (associated with a specific diagnosis that is being evaluated, monitored, or treated as if it exists) are acceptable and can be coded in the inpatient setting, when documented at the
time of discharge.
Thank you,
Marilu Palafox RN BSN CCDS
CDI Specialist
Please contact via tiger text
Please use your independent medical judgment in providing your response.
[2025-01-23 15:50] VITALS: BP 134/88
[2025-01-23] MEDS: ATIVAN 0.5 MG IV (21:03)
[2025-01-23] MEDS: NSS (PRESERVATIVE FREE) 0.25 ML IV (21:03)
[2025-01-23] MEDS: ZOFRAN 4 MG IV (22:45)
[2025-01-23 23:44] VITALS: BP 146/87
[2025-01-24] MEDS: ZOSYN 50 IV ×4 (02:46→19:54)
[2025-01-24] MEDS: D5/0.9% SODIUM CHLORIDE 1000 IV ×3 (05:23→19:07)
[2025-01-24 07:00] VITALS: BP 147/92
[2025-01-24] MEDS: PROTONIX 100 IV (09:15)
[2025-01-24 09:21] VITALS: BMI 32.8
[2025-01-24 09:29] LABS: ALT (SGPT) 27 U/L (0-35); AST (SGOT) 32 U/L (14-36); Albumin 3.8 g/dl (3.5-5.0); Alkaline Phosphatase 103 U/L (38-126); Blood Urea Nitrogen < 2 mg/dl (7-17); Calcium 8.6 mg/dl (8.4-10.2); Carbon Dioxide 26 mmol/L (22-30); Chloride 111 mmol/L (98-107); Estimated Creatinine Clearance 122 ml/min; Glucose 133 mg/dl (70-99); Magnesium 1.7 mg/dl (1.6-2.3); Potassium 3.6 mmol/L (3.5-5.1); Sodium 140 mmol/L (135-145); Total Bilirubin 1.3 mg/dl (0.2-1.3); Total Protein 6.7 g/dl (6.3-8.2); Triglycerides 177 mg/dl (10-149); eGFR > 60.00
--- NOTE | 2025-01-24 09:31 | W.PN.GS2 ---
Today's Communication / Plan
-
Start TPN
Continue n.p.o., IV fluids, NG tube to low intermittent wall suction
Assessment / Plan
-
Assessment: Patient is a 44 yo F p/w 3 to 4 days of abdominal pain found to have pancreatitis secondary to a posterior perforated duodenal ulcer in the proximal portion of D3 which was redemonstrated in the upper GI 01/23/2025.
PPI, okay to transition to twice daily
N.p.o., IV fluids, continue NG tube to low intermittent wall suction
Antibiotics x4d
Anticipate keeping the NG tube for roughly a week with plan for repeat upper GI at that time.
Given that her last p.o. intake was last , I feel like we should begin with placement of a PICC line and initiation of TPN.
Risk benefits and alternatives once again reviewed with patient. She is tearful but amenable to the plan above.
Time Spent
Total Time Spent with Patient (in minutes): 20
Subjective Data
-
Date of Service: January 24, 2025
Interval Events:
No acute events overnight. Slept well. Pain still fairly significant but controlled. Denies Nausea/Vomiting, +bowel function.
Objective Data
-
Intake and Output
01/23/25 01/24/25 01/25/25
06:59 06:59 06:59
Intake Total 2019 1100 / 1100
Output Total 700 / 700
Balance 1320 / 1320 -25 / -25 1100 / 1100
Intake:
IV fluids (Total) 1920 / 192 1000 / 1000
IV piggybacks 100 / 100 100 / 100
Output:
Gastrointestinal tube output ( 700 / 700
Total)
[place] Sump 700 / 700
Other:
Number of approximated MODERATE 2 3
amounts of urine
Vital Signs
Temp Pulse Resp BP Pulse Ox
97.8 F 76 16 147/92 96
01/24/25 07:00 01/24/25 07:00 01/24/25 07:00 01/24/25 07:00 01/24/25 07:00
Lab Results
01/23/25 05:47
01/24/25 09:03
Calcium 8.6 mg/dl (8.4-10.2) 01/24/25 09:03
Phosphorus 2.0 mg/dl (2.5-4.5) L 01/24/25 09:03
Magnesium 1.7 mg/dl (1.6-2.3) 01/24/25 09:03
Total Bilirubin 1.3 mg/dl (0.2-1.3) 01/24/25 09:03
AST 32 U/L (14-36) 01/24/25 09:03
ALT 27 U/L (0-35) 01/24/25 09:03
Alkaline Phosphatase 103 U/L (38-126) 01/24/25 09:03
Total Protein 6.7 g/dl (6.3-8.2) 01/24/25 09:03
Albumin 3.8 g/dl (3.5-5.0) 01/24/25 09:03
Physical Exam
-
GENERAL/NEURO: Awake, Alert, no distress
CHEST: Unlabored breathing on RA
ABDOMEN: Soft, obese, mildly tender, nondistended, NG tube with light bilious output
Patient has a kebede catheter: No
Patient has a central line: No
--- NOTE | 2025-01-24 09:39 | W.PN.HOSP.TC ---
Today's Communication/Plan
-
TPN
Pic line
Stop dextrose gtt when TPN starts tonight
Change to PPI BID
Assessment / Plan
Assessment / Plan
Physical exam:
General: Well Developed, Well Nourished and No Apparent Distress
HEENT: Normocephalic, Moist mucous membranes and Atraumatic. NG tube
Respiratory: Clear
Cardiac: S1/S2
GI: Soft, Tender, Non Distended and good Bowel Sounds
Musculoskeletal: No Edema
Neuro: Nonfocal/grossly intact
Psych: no agitation
44 y/o female with contained penetrating posterior duodenal ulcer
# hypoglycemia due to NPO status
resolved with IVF.
# NPO status,
we are expecting extended time for NPO status , d/w surgery
Will do Pic line, and TPN
d/w nutrition,adjusted TPN orders
Help appreciated
#Acute duodenal ulcer
Duodenitis/ulcer with contained perforation
met sepsis criteria on admission POA
Good clinical improvement in last 48 hours.
Localized peritonitis
continue NGT decompression and bowel rest
renewed PPI gtt
WBC is normal.
No fevers
Upper gI series showed persistent leak, plan to c/w bowel rest and PPI for now
continue Zosyn for empiric abx
Followed by surgery and GI doctors
Appreciate GI & surgery help
# GERD and gallstones status postcholecystectomy 2012
c/w IV PPI gtt
Total time spent to see the patient, examine the patient, review data and lab results, discuss treatment plan with patient and nursing staff around 55 minutes
Anticipated Discharge: > 48 hours
Subjective/Interval History
-
Date of Service: January 24, 2025
No worsening abdominal pain or nausea
No fevers
Objective Data
-
Labs:
Laboratory Results
01/24/25
09:03
Sodium 140
Potassium 3.6
Chloride 111 H
Carbon Dioxide 26
BUN < 2 L
Creatinine 0.6
Glucose 133 H
Calcium 8.6
Total Bilirubin 1.3
AST 32
ALT 27
Alkaline Phosphatase 103
Vital Signs:
Vital Signs
Temp Pulse Resp BP Pulse Ox
97.8 F 76 16 147/92 96
01/24/25 07:00 01/24/25 07:00 01/24/25 07:00 01/24/25 07:00 01/24/25 07:00
I&O
01/23/25 01/24/25 01/25/25
06:59 06:59 06:59
Intake Total 2019 1100 / 1100
Output Total 700 / 700
Balance 1320 / 1320 - 1100 / 1100
--- NOTE | 2025-01-24 09:42 | CM ---
Patient seen at bedside
pancreatitis secondary to a perforated duodenal ulcer in the proximal portion of D3 which was redemonstrated in the upper GI 01/23/2025.
NPO, NGT, PICC to be placed to initiate TPN
PLAN: TBD, follow hospital progression, CM to follow for needs
[2025-01-24 11:59] LABS: Glucose - Point of Care 126 mg/dl (70-99)
[2025-01-24] MEDS: ATIVAN 0.5 MG IV (12:35)
--- NOTE | 2025-01-24 13:45 | VATNOTE ---
During pre-PICC placement assessment, the pt's right arm was noticed to have redness, swelling, and streaking from the site of a zosyn infiltrate in the R hand the previous day. Discussed with PCN who will contact MD to evaluate. PICC line placed in
L arm due to the streaking noted in R arm.
[2025-01-24 15:00] VITALS: BP 157/95
--- NOTE | 2025-01-24 16:14 | DOWNTIME ---
There was a [employer] Downtime on 01/24/2025 from 1230 to 01/24/2025 at 1550. Downtime documentation of patient's care, including medication administrations, has been reconciled in the electronic record per guidelines. Refer to the
patient's paper chart under the miscellaneous tab to see printed paper medication records and downtime forms.
[2025-01-24 18:02] VITALS: BP 150/93
[2025-01-24 18:11] LABS: Glucose - Point of Care 94 mg/dl (70-99)
[2025-01-24] MEDS: NSS (PRESERVATIVE FREE) 10 ML IV (20:42)
[2025-01-24] MEDS: PROTONIX IV 40 MG IV (20:42)
[2025-01-24] MEDS: Parenteral Nutrition, Central 1050 IV (21:23)
[2025-01-24] MEDS: ZOFRAN 4 MG IV (22:48)
[2025-01-24 23:43] VITALS: BP 154/94
[2025-01-25 00:27] LABS: Glucose - Point of Care 121 mg/dl (70-99)
[2025-01-25] MEDS: D5/0.9% SODIUM CHLORIDE IV ×2 (01:07→06:54)
[2025-01-25] MEDS: ZOSYN 50 IV ×4 (02:36→19:48)
[2025-01-25 05:26] LABS: Blood Urea Nitrogen 4 mg/dl (7-17); Calcium 8.9 mg/dl (8.4-10.2); Carbon Dioxide 26 mmol/L (22-30); Chloride 107 mmol/L (98-107); Estimated Creatinine Clearance 122 ml/min; Glucose 133 mg/dl (70-99); Magnesium 1.8 mg/dl (1.6-2.3); Phosphorus 3.3 mg/dl (2.5-4.5); Potassium 3.2 mmol/L (3.5-5.1); Sodium 141 mmol/L (135-145); eGFR > 60.00
[2025-01-25 06:00] VITALS: BMI 32.6
[2025-01-25 06:10] LABS: Glucose - Point of Care 122 mg/dl (70-99)
[2025-01-25] MEDS: OFIRMEV 100 IV ×2 (06:43→15:40)
[2025-01-25 07:00] VITALS: BP 145/93
[2025-01-25] MEDS: ZOFRAN 4 MG IV ×2 (08:06→21:18)
[2025-01-25] MEDS: NSS (PRESERVATIVE FREE) 10 ML IV ×2 (08:06→19:48)
[2025-01-25] MEDS: PROTONIX IV 40 MG IV ×2 (08:06→19:48)
[2025-01-25 09:09] LABS: Glycohemoglobin (HgbA1c) 5.4 % (4.0-5.6)
--- NOTE | 2025-01-25 09:22 | W.PN.HOSP.TC ---
Today's Communication/Plan
-
Change acu check to BID only
ordered TPN
Encourage ambulation
Assessment / Plan
Assessment / Plan
Physical exam:
General: Well Developed, Well Nourished and No Apparent Distress
HEENT: Normocephalic, Moist mucous membranes and Atraumatic. NG tube. Pic line left upper arm.
Respiratory: Clear
Cardiac: S1/S2
GI: Soft, Tender, Non Distended and good Bowel Sounds
Musculoskeletal: No Edema
Neuro: Nonfocal/grossly intact
Psych: no agitation
44 y/o female with contained penetrating posterior duodenal ulcer
# NPO status, we are expecting extended time for NPO status , d/w surgery
s/p Pic line 01/24, and TPN
d/w nutrition,adjusted TPN orders
Blood glucose seems well-controlled and patient prefers to avoid insulin, will decrease Accu-Chek to BID.
# Hypokalemia, replace
# mild thrombophlebitis noted on right arm and left arm after IV peripheral access. Patient has no pain. Seems to be improving. Continue to clean skin with soap and water, can apply cold compresses as needed but seems to be resolving.
#Acute duodenal ulcer
Duodenitis/ulcer with contained perforation
met sepsis criteria on admission POA
Good clinical improvement in last 48 hours.
Localized peritonitis
continue NGT decompression and bowel rest
Status post Protonix drip, now on IV Protonix
WBC is normal.
No fevers
Upper gI series showed persistent leak, plan to c/w bowel rest and PPI for now
continue Zosyn for empiric abx
Followed by surgery and GI doctors. GI signed off for now
Appreciate GI & surgery help
# GERD and gallstones status postcholecystectomy 2012
c/w IV PPI gtt
Total time spent to see the patient, examine the patient, review data and lab results, discuss treatment plan with patient and nursing staff around 57 minutes
Anticipated Discharge: > 48 hours
Subjective/Interval History
-
Date of Service: January 25, 2025
No chest pain
No sob
No fevers
Mild headache earlier today
Objective Data
-
Labs:
Laboratory Results
01/25/25
04:28
Sodium 141
Potassium 3.2 L
Chloride 107
Carbon Dioxide 26
BUN 4 L
Creatinine 0.6
Glucose 133 H
Calcium 8.9
Vital Signs:
Vital Signs
Temp Pulse Resp BP Pulse Ox
97.9 F 66 18 145/93 96
01/25/25 07:00 01/25/25 07:00 01/25/25 07:00 01/25/25 07:00 01/25/25 07:00
I&O
01/24/25 01/25/25 01/26/25
06:59 06:59 06:59
Intake Total 2976 / 2976
Output Total 50 / 50 275 / 275
Balance -50 / -50 2701 / 2701
--- NOTE | 2025-01-25 12:09 | VATNOTE ---
Reassessed pt's right arm redness, streaking, and swelling during routine rounds. Hand appears resolved and streaking up arm appears much weighmaster. Pt also feels like it has improved greatly. Discussed with MD who addressed the situation yesterday
without any further orders or concerns.
[2025-01-25 12:34] LABS: Glucose - Point of Care 122 mg/dl (70-99)
--- NOTE | 2025-01-25 14:04 | W.PN.GS2 ---
Today's Communication / Plan
-
`
Assessment / Plan
-
Assessment: 44 yo female admitted with contained penetrating posterior perforated duodenal ulcer in the proximal portion of D3 which was remonstrated on the upper GI 01/23/2025.
AFVSS
clinically stable
Plan: BID IV Protonix
Bowel rest and decompression; N.p.o., continue NG tube to low intermittent wall suction
TPN started 01/24/25
Continue empiric abx coverage with zosyn for contained perforated DU
Plan for follow up UGI contrast imaging next week (1 week out from last study 01/23)
reviewed with patient, any of her concerns or questions were confirmed to be addressed
Subjective Data
-
Date of Service: January 25, 2025
pt seen and examined
no significant abdominal pain
no nausea
tolerating NGT
has a YUSUF today and loose BMs
Objective Data
-
Intake and Output
01/24/25 01/25/25 01/26/25
06:59 06:59 06:59
Intake Total 2976 / 2976
Output Total 50 / 50 275 / 275
Balance -50 / -50 2701 / 2701
Intake:
IV fluids (Total) 2330 / 2330
IV piggybacks 250 / 250
TPN/PPN 396 / 396
Output:
Gastrointestinal tube output ( 50 / 50 275 / 275
Total)
[place] Sump 50 / 50 275 / 275
Other:
Number of approximated MODERATE 2 3 1
amounts of urine
How many times incontinent 1
MODERATE amount urine
Vital Signs
Temp Pulse Resp BP Pulse Ox
97.9 F 66 18 145/93 96
01/25/25 07:00 01/25/25 07:00 01/25/25 07:00 01/25/25 07:00 01/25/25 07:00
Lab Results
01/23/25 05:47
01/25/25 04:28
Calcium 8.9 mg/dl (8.4-10.2) 01/25/25 04:28
Phosphorus 3.3 mg/dl (2.5-4.5) 01/25/25 04:28
Magnesium 1.8 mg/dl (1.6-2.3) 01/25/25 04:28
Total Bilirubin 1.3 mg/dl (0.2-1.3) 01/24/25 09:03
AST 32 U/L (14-36) 01/24/25 09:03
ALT 27 U/L (0-35) 01/24/25 09:03
Alkaline Phosphatase 103 U/L (38-126) 01/24/25 09:03
Total Protein 6.7 g/dl (6.3-8.2) 01/24/25 09:03
Albumin 3.8 g/dl (3.5-5.0) 01/24/25 09:03
Physical Exam
-
NAD AAOx3
NGT in place - bilious contents
[2025-01-25 15:00] VITALS: BP 154/93
--- NOTE | 2025-01-25 15:21 | CM ---
CM reviewed chart and met with pt at bedside. Has PICC and receiving TPN. States NG tube is going to be removed.
Discharge plan: Home, potentially with PICC and TPN, continue to follow for DC needs
[2025-01-25 18:19] LABS: Glucose - Point of Care 142 mg/dl (70-99)
[2025-01-25] MEDS: Parenteral Nutrition, Central 1060 IV (21:13)
[2025-01-25] MEDS: ATIVAN 0.5 MG IV (21:16)
[2025-01-25] MEDS: NSS (PRESERVATIVE FREE) 0.25 ML IV (21:17)
[2025-01-25 23:00] VITALS: BP 141/90
[2025-01-25 23:49] LABS: Glucose - Point of Care 124 mg/dl (70-99)
[2025-01-26] MEDS: ZOSYN 50 IV ×4 (02:13→20:56)
[2025-01-26 05:33] LABS: Blood Urea Nitrogen 10 mg/dl (7-17); Calcium 8.9 mg/dl (8.4-10.2); Carbon Dioxide 26 mmol/L (22-30); Chloride 107 mmol/L (98-107); Estimated Creatinine Clearance 104 ml/min; Glucose 124 mg/dl (70-99); Phosphorus 3.7 mg/dl (2.5-4.5); Potassium 3.6 mmol/L (3.5-5.1); Sodium 140 mmol/L (135-145); eGFR > 60.00
[2025-01-26 06:00] VITALS: BMI 33.1
[2025-01-26 07:00] VITALS: BP 148/91
[2025-01-26] MEDS: PROTONIX IV 40 MG IV ×2 (08:29→20:56)
[2025-01-26] MEDS: NSS (PRESERVATIVE FREE) 10 ML IV ×2 (08:29→20:56)
--- NOTE | 2025-01-26 09:08 | W.PN.HOSP.TC ---
Today's Communication/Plan
-
TPN
Ok to ambulate
Assessment / Plan
Assessment / Plan
Physical exam:
General: Well Developed, Well Nourished and No Apparent Distress
HEENT: Normocephalic, Moist mucous membranes and Atraumatic. NG tube. Pic line left upper arm.
Respiratory: Clear
Cardiac: S1/S2
GI: Soft, Tender, Non Distended and good Bowel Sounds
Musculoskeletal: No Edema
Neuro: Nonfocal/grossly intact
Psych: no agitation
44 y/o female with contained penetrating posterior duodenal ulcer
# NPO status, we are expecting extended time for NPO status , d/w surgery
s/p Pic line 01/24, and TPN
d/w nutrition,adjusted TPN orders
Blood glucose seems well-controlled and patient prefers to avoid insulin, will decrease Accu-Chek to BID.
# Hypokalemia, replaced
# mild thrombophlebitis noted on right arm and left arm after IV peripheral access. Looks back to normal skin with no redness.
#Acute duodenal ulcer
Duodenitis/ulcer with contained perforation
met sepsis criteria on admission POA
Good clinical improvement in last 48 hours.
Localized peritonitis
continue NGT decompression and bowel rest
Status post Protonix drip, now on IV Protonix
WBC is normal.
No fevers
Upper gI series showed persistent leak, plan to c/w bowel rest and PPI for now
continue Zosyn for empiric abx
Followed by surgery and GI doctors. GI signed off for now
Appreciate GI & surgery help
# GERD and gallstones status postcholecystectomy 2012
c/w IV PPI gtt
Total time spent to see the patient, examine the patient, review data and lab results, discuss treatment plan with patient and nursing staff around 55 minutes
Anticipated Discharge: > 48 hours
Subjective/Interval History
-
Date of Service: January 26, 2025
Ativan helps with nausea and discomfort from NG tube
No abdominal pain
Objective Data
-
Labs:
Laboratory Results
01/26/25
04:59
Sodium 140
Potassium 3.6
Chloride 107
Carbon Dioxide 26
BUN 10
Creatinine 0.7
Glucose 124 H
Calcium 8.9
Vital Signs:
Vital Signs
Temp Pulse Resp BP Pulse Ox
97.9 F 78 20 141/90 98
01/25/25 23:00 01/25/25 23:00 01/25/25 23:00 01/25/25 23:00 01/25/25 23:00
I&O
01/25/25 01/26/25 01/27/25
06:59 06:59 06:59
Intake Total 2976 / 2976 1412 / 1412
Output Total 275 / 275 325 / 325
Balance 2701 / 2701 1087 / 1087
--- NOTE | 2025-01-26 09:33 | W.PN.GS2 ---
Addendum entered and electronically signed by Louie Shirley MD 01/26/25 10:16:
Patient seen and examined in surgical follow-up with [facility].
Patient in better spirits today.
States that her previous abdominal pains had nearly completely resolved just mild residual epigastric discomfort with some radiation into the back
Tolerating NG tube; + BMs
AFVSS
ABD: Soft, mild tenderness in the epigastrium but no rebound rigidity or guarding
A/P: Bowel rest and NG tube decompression; TPN
Zosyn for empiric coverage of contained perforated DU
Protonix twice daily IV
Encourage patient to continue to ambulate intermittently throughout the day -okay to clamp NG tube for activity
Follow-up upper GI imaging anticipated on 01/30/2025
Original Note:
Today's Communication / Plan
-
NGT/NPO/TPN
Assessment / Plan
-
Assessment: 44 yo female admitted with contained penetrating posterior perforated duodenal ulcer in the proximal portion of D3 which was remonstrated on the upper GI 01/23/2025.
AFVSS
clinically stable
Plan: BID IV Protonix
Bowel rest and decompression; N.p.o., continue NG tube to low intermittent wall suction
TPN started 01/24/25
Continue empiric abx coverage with zosyn for contained perforated DU
Plan for follow up UGI contrast imaging on 01/30/25 (1 week out from last study 01/23)
reviewed with patient, any of her concerns or questions were confirmed to be addressed
Subjective Data
-
Date of Service: January 26, 2025
Patient seen and examined at bedside with Dr. Shirlye. Pain to upper abdomen decreased but does still radiate into her back. Denies n/v. Denies hematochezia/tarry stools.
Objective Data
-
Intake and Output
01/25/25 01/26/25 01/27/25
06:59 06:59 06:59
Intake Total 2976 / 2976 1412 / 1412
Output Total 275 / 275 325 / 325
Balance 2701 / 2701 1087 / 1087
Intake:
Oral fluids 0 / 0
IV fluids (Total) 2330 / 2330
IV piggybacks 250 / 250 400 / 400
TPN/PPN 396 / 396 1012 / 1012
Output:
Gastrointestinal tube output ( 275 / 275 325 / 325
Total)
[place] Sump 275 / 275 325 / 325
Other:
Number of approximated MODERATE 3 2
amounts of urine
How many times incontinent 1
MODERATE amount urine
Vital Signs
Temp Pulse Resp BP Pulse Ox
97.9 F 78 20 141/90 98
01/25/25 23:00 01/25/25 23:00 01/25/25 23:00 01/25/25 23:00 01/25/25 23:00
Lab Results
01/23/25 05:47
01/26/25 04:59
Calcium 8.9 mg/dl (8.4-10.2) 01/26/25 04:59
Phosphorus 3.7 mg/dl (2.5-4.5) 01/26/25 04:59
Magnesium 2.0 mg/dl (1.6-2.3) 01/26/25 04:59
Total Bilirubin 1.3 mg/dl (0.2-1.3) 01/24/25 09:03
AST 32 U/L (14-36) 01/24/25 09:03
ALT 27 U/L (0-35) 01/24/25 09:03
Alkaline Phosphatase 103 U/L (38-126) 01/24/25 09:03
Total Protein 6.7 g/dl (6.3-8.2) 01/24/25 09:03
Albumin 3.8 g/dl (3.5-5.0) 01/24/25 09:03
Physical Exam
-
NAD AAOx3
NGT in place - bileous/gastric contents
ABD soft, mild tenderness to epigastrium, nd
Patient has a kebede catheter: No
Patient has a central line: Yes
--- NOTE | 2025-01-26 12:00 | CM ---
CM reviewed chart and met with pt. Pt still has NG and is receiving TPN. Per pt plan is repeat CT early next week to see if ulcer has closed. CM will continue to follow for discharge planning needs.
Plan: Home, continue to follow for medical progress
[2025-01-26 12:02] LABS: Glucose - Point of Care 111 mg/dl (70-99)
[2025-01-26 18:28] LABS: Glucose - Point of Care 75 mg/dl (70-99)
[2025-01-26] MEDS: Parenteral Nutrition, Central 1060 IV (20:57)
[2025-01-26] MEDS: ATIVAN 0.5 MG IV (23:29)
[2025-01-26] MEDS: NSS (PRESERVATIVE FREE) 0.25 ML IV (23:29)
[2025-01-27] LABS: Glucose - Point of Care 100 mg/dl (70-99)
[2025-01-27] MEDS: ZOSYN 50 IV ×4 (02:16→20:13)
[2025-01-27 05:57] LABS: Glucose - Point of Care 115 mg/dl (70-99)
[2025-01-27 05:58] VITALS: BMI 32.5
[2025-01-27 06:38] LABS: Blood Urea Nitrogen 14 mg/dl (7-17); Calcium 8.9 mg/dl (8.4-10.2); Carbon Dioxide 27 mmol/L (22-30); Chloride 108 mmol/L (98-107); Estimated Creatinine Clearance 104 ml/min; Glucose 126 mg/dl (70-99); Phosphorus 3.8 mg/dl (2.5-4.5); Potassium 4.1 mmol/L (3.5-5.1); Sodium 140 mmol/L (135-145); eGFR > 60.00
[2025-01-27 07:00] VITALS: BP 134/75
[2025-01-27] MEDS: NSS (PRESERVATIVE FREE) 10 ML IV ×2 (08:17→20:12)
[2025-01-27] MEDS: PROTONIX IV 40 MG IV ×2 (08:17→20:11)
--- NOTE | 2025-01-27 08:54 | W.PN.HOSP.TC ---
Today's Communication/Plan
-
TPN
Stool test
Assessment / Plan
Assessment / Plan
Physical exam:
General: Well Developed, Well Nourished and No Apparent Distress
HEENT: Normocephalic, Moist mucous membranes and Atraumatic. NG tube. Pic line left upper arm.
Respiratory: Clear
Cardiac: S1/S2
GI: Soft, Tender, Non Distended and good Bowel Sounds
Musculoskeletal: No Edema
Neuro: Nonfocal/grossly intact
Psych: no agitation
44 y/o female with contained penetrating posterior duodenal ulcer
# NPO status, we are expecting extended time for NPO status , d/w surgery
s/p Pic line 01/24, and TPN
d/w nutrition,adjusted TPN orders
Blood glucose seems well-controlled and patient prefers to avoid insulin, will decrease Accu-Chek to BID.
# Hypokalemia, replaced
# mild thrombophlebitis noted on right arm and left arm after IV peripheral access. Looks back to normal skin with no redness.
#Acute duodenal ulcer
Duodenitis/ulcer with contained perforation
met sepsis criteria on admission POA
Good clinical improvement in last 48 hours.
Localized peritonitis
continue NGT decompression and bowel rest
Status post Protonix drip, now on IV Protonix
WBC is normal.
No fevers
Send stool for H Pylori, if positive: helpful , if negative could be false negative.
Upper gI series showed persistent leak, plan to c/w bowel rest and PPI for now
continue Zosyn for empiric abx
Followed by surgery and GI doctors. GI signed off for now
Appreciate GI & surgery help
# GERD and gallstones status postcholecystectomy 2012
c/w IV PPI gtt
Total time spent to see the patient, examine the patient, review data and lab results, discuss treatment plan with patient and nursing staff around 55 minutes
Anticipated Discharge: > 48 hours
Subjective/Interval History
-
Date of Service: January 27, 2025
No complaints
Objective Data
-
Labs:
Laboratory Results
01/27/25
05:51
Sodium 140
Potassium 4.1
Chloride 108 H
Carbon Dioxide 27
BUN 14
Creatinine 0.7
Glucose 126 H
Calcium 8.9
Vital Signs:
Vital Signs
Temp Pulse Resp BP Pulse Ox
98.3 F 71 20 148/91 96
01/26/25 07:00 01/26/25 07:00 01/26/25 07:00 01/26/25 07:00 01/26/25 07:00
I&O
01/26/25 01/27/25 01/28/25
06:59 06:59 06:59
Intake Total 1412 / 1412
Output Total 325 / 325 100 / 100
Balance 1087 / 1087 -100 / -100
--- NOTE | 2025-01-27 11:00 | W.PN.GS2 ---
Today's Communication / Plan
-
npo/ngt/tpn
Assessment / Plan
-
Assessment: 44 yo female admitted with contained penetrating posterior perforated duodenal ulcer in the proximal portion of D3 which was remonstrated on the upper GI 01/23/2025.
AFVSS
clinically stable
h.pylori pending
Plan: BID IV Protonix
Bowel rest and decompression; N.p.o., continue NG tube to low intermittent wall suction
TPN started 01/24/25
Continue empiric abx coverage with zosyn for contained perforated DU
Plan for follow up UGI contrast imaging on Wednesday or Wednesday (1 week out from last study 01/23)
reviewed with patient, any of her concerns or questions were confirmed to be addressed
Subjective Data
-
Date of Service: January 27, 2025
Patient seen and examined at bedside with Dr. Philip. Shields n/v. Pain continues to improve, mild to epigastrium. Feeling more energy.
Objective Data
-
Intake and Output
01/26/25 01/27/25 01/28/25
06:59 06:59 06:59
Intake Total 1412 / 1412
Output Total 325 / 325 100 / 100
Balance 1087 / 1087 -100 / -100
Intake:
Oral fluids 0 / 0
IV piggybacks 400 / 400
TPN/PPN 1012 / 1012
Output:
Gastrointestinal tube output ( 325 / 325 100 / 100
Total)
[place] Sump 325 / 325 100 / 100
Other:
Number of approximated MODERATE 2 1
amounts of urine
Vital Signs
Temp Pulse Resp BP Pulse Ox
97.8 F 66 20 134/75 97
01/27/25 07:00 01/27/25 07:00 01/27/25 07:00 01/27/25 07:00 01/27/25 07:00
Lab Results
01/23/25 05:47
01/27/25 05:51
Calcium 8.9 mg/dl (8.4-10.2) 01/27/25 05:51
Phosphorus 3.8 mg/dl (2.5-4.5) 01/27/25 05:51
Magnesium 2.0 mg/dl (1.6-2.3) 01/27/25 05:51
Total Bilirubin 1.3 mg/dl (0.2-1.3) 01/24/25 09:03
AST 32 U/L (14-36) 01/24/25 09:03
ALT 27 U/L (0-35) 01/24/25 09:03
Alkaline Phosphatase 103 U/L (38-126) 01/24/25 09:03
Total Protein 6.7 g/dl (6.3-8.2) 01/24/25 09:03
Albumin 3.8 g/dl (3.5-5.0) 01/24/25 09:03
Physical Exam
-
NAD AAOx3
NGT in place - bileous/gastric contents
ABD soft, mild tenderness to epigastrium, nd
Patient has a kebede catheter: No
Patient has a central line: Yes
[2025-01-27 12:06] LABS: Glucose - Point of Care 111 mg/dl (70-99)
[2025-01-27 15:50] VITALS: BP 120/87
--- NOTE | 2025-01-27 15:54 | VATNOTE ---
Right arm infiltrate significantly improved
[2025-01-27 20:14] LABS: Glucose - Point of Care 94 mg/dl (70-99)
[2025-01-27] MEDS: Parenteral Nutrition, Central 1060 IV (21:03)
[2025-01-27] MEDS: ATIVAN 0.5 MG IV (22:20)
[2025-01-27] MEDS: NSS (PRESERVATIVE FREE) 0.25 ML IV (22:21)
[2025-01-27 23:36] VITALS: BP 146/89
[2025-01-28] MEDS: ZOSYN 50 IV ×4 (03:12→21:14)
[2025-01-28 06:22] LABS: Hematocrit 39.9 % (37.0-47.0); Hemoglobin 13.3 g/dL (12.0-16.0); Mean Corp Hgb Conc. 33.3 g/dL (33.0-37.0); Mean Corpuscular Hgb 30.7 pg (27.0-31.0); Mean Corpuscular Volume 92.1 fL (81.0-99.0); Mean Platelet Volume 9.5 fL (7.4-10.4); Platelet Count 276 10^3/uL (130-400); Red Blood Cell Count 4.33 10^6/uL (4.20-5.40); Red Cell Dist. Width 13.2 % (11.5-14.5); White Blood Cell Count 8.6 10^3/uL (4.8-10.8)
[2025-01-28 07:00] VITALS: BP 139/78
[2025-01-28] MEDS: NSS (PRESERVATIVE FREE) 10 ML IV ×2 (08:15→21:15)
[2025-01-28] MEDS: FLUSH (NSS) 2 FLUSH IV (08:15)
[2025-01-28] MEDS: PROTONIX IV 40 MG IV ×2 (08:15→21:15)
[2025-01-28 08:17] LABS: Glucose - Point of Care 112 mg/dl (70-99)
--- NOTE | 2025-01-28 09:51 | W.PN.HOSP.TC ---
Today's Communication/Plan
-
BMP & Lipase
Assessment / Plan
Assessment / Plan
Physical exam:
General: Well Developed, Well Nourished and No Apparent Distress
HEENT: Normocephalic, Moist mucous membranes and Atraumatic. NG tube. Pic line left upper arm.
Respiratory: Clear
Cardiac: S1/S2
GI: Soft, not tender, Non Distended and good Bowel Sounds
Musculoskeletal: No Edema
Neuro: Nonfocal/grossly intact
Psych: no agitation
44 y/o female with contained penetrating posterior duodenal ulcer
# mild left upper abdominal discomfort, no fever
Normal WBC
Soft abdomen, not distended or tender, will check Lipase
# NPO status, we are expecting extended time for NPO status , d/w surgery
s/p Pic line 01/24, and TPN
d/w nutrition,adjusted TPN orders
Blood glucose seems well-controlled and patient prefers to avoid insulin, will decrease Accu-Chek to BID.
# Hypokalemia, replaced
# mild thrombophlebitis noted on right arm and left arm after IV peripheral access. Looks back to normal skin with no redness.
#Acute duodenal ulcer
Duodenitis/ulcer with contained perforation
met sepsis criteria on admission POA
Good clinical improvement in last 48 hours.
Localized peritonitis
continue NGT decompression and bowel rest
Status post Protonix drip, now on IV Protonix
WBC is normal.
No fevers
Send stool for H Pylori, if positive: helpful , if negative could be false negative.
Upper gI series showed persistent leak, plan to c/w bowel rest and PPI for now
continue Zosyn for empiric abx
Followed by surgery and GI doctors. GI signed off for now
Appreciate GI & surgery help
# GERD and gallstones status postcholecystectomy 2012
c/w IV PPI gtt
Total time spent to see the patient, examine the patient, review data and lab results, discuss treatment plan with patient and nursing staff around 55 minutes
Anticipated Discharge: > 48 hours
Subjective/Interval History
-
Date of Service: January 28, 2025
Mild right upper abd pain over night, better now
still passing gas and bM
Objective Data
-
Labs:
Laboratory Results
01/28/25
05:47
WBC 8.6
Hgb 13.3
Hct 39.9
Plt Count 276
Vital Signs:
Vital Signs
Temp Pulse Resp BP Pulse Ox
98.2 F 72 18 139/78 97
01/28/25 07:00 01/28/25 07:00 01/28/25 07:00 01/28/25 07:00 01/28/25 07:00
I&O
01/27/25 01/28/25 01/29/25
06:59 06:59 06:59
Intake Total 100 / 100
Output Total 100 / 100
Balance -100 / -100 100 / 100
[2025-01-28 11:35] LABS: Blood Urea Nitrogen 12 mg/dl (7-17); Calcium 9.2 mg/dl (8.4-10.2); Carbon Dioxide 24 mmol/L (22-30); Chloride 108 mmol/L (98-107); Estimated Creatinine Clearance 104 ml/min; Glucose 124 mg/dl (70-99); Lipase 503 U/L (23-300); Potassium 4.4 mmol/L (3.5-5.1); Sodium 138 mmol/L (135-145); eGFR > 60.00
[2025-01-28] MEDS: FLUSH (NSS) 1 FLUSH IV (14:16)
[2025-01-28 15:00] VITALS: BP 143/93
--- NOTE | 2025-01-28 18:59 | VATNOTE ---
Right arm infiltrate significantly improved, small amount of ecchymosis remains, no erythema.
[2025-01-28 19:50] LABS: Glucose - Point of Care 104 mg/dl (70-99)
[2025-01-28] MEDS: Parenteral Nutrition, Central 1060 IV (21:12)
[2025-01-28] MEDS: ATIVAN 0.5 MG IV (21:19)
[2025-01-28 23:47] VITALS: BP 134/83
[2025-01-29] MEDS: ZOSYN 50 IV ×4 (03:12→20:42)
[2025-01-29 06:00] VITALS: BMI 32.3
[2025-01-29 06:51] LABS: ALT (SGPT) 180 U/L (0-35); AST (SGOT) 117 U/L (14-36); Alkaline Phosphatase 106 U/L (38-126); Blood Urea Nitrogen 14 mg/dl (7-17); Calcium 9.2 mg/dl (8.4-10.2); Carbon Dioxide 25 mmol/L (22-30); Chloride 108 mmol/L (98-107); Estimated Creatinine Clearance 90 ml/min; Glucose 118 mg/dl (70-99); Lipase 503 U/L (23-300); Magnesium 2.1 mg/dl (1.6-2.3); Phosphorus 3.9 mg/dl (2.5-4.5); Potassium 4.4 mmol/L (3.5-5.1); Sodium 139 mmol/L (135-145); Total Bilirubin 0.9 mg/dl (0.2-1.3); Total Protein 7.1 g/dl (6.3-8.2); Triglycerides 307 mg/dl (10-149); eGFR > 60.00
[2025-01-29 07:00] VITALS: BP 131/80
--- NOTE | 2025-01-29 08:23 | W.PN.GS2 ---
Today's Communication / Plan
-
UGI/SBFT imaging today
Assessment / Plan
-
Assessment: 44 yo female admitted with contained penetrating posterior perforated duodenal ulcer in the proximal portion of D3 which was remonstrated on the upper GI 01/23/2025.
AFVSS
clinically stable
h.pylori pending
Plan: BID IV Protonix
Bowel rest and decompression; N.p.o., continue NG tube to low intermittent wall suction
TPN started 01/24/25, managed by hospitalist currently
Continue empiric abx coverage with zosyn for contained perforated DU
Plan for follow up UGI contrast imaging today
reviewed with patient, any of her concerns or questions were confirmed to be addressed
Subjective Data
-
Date of Service: January 29, 2025
Patient seen and examined at bedside with Dr. Philip. Shields n/v. Mild pain persists to epigastrium into the LUQ. Passing flatus/stool.
Objective Data
-
Intake and Output
01/28/25 01/29/25 01/30/25
06:59 06:59 06:59
Intake Total 100 / 100 1256 / 1256
Output Total 125 / 125
Balance 100 / 100 1131 / 1131
Intake:
IV piggybacks 100 / 100 200 / 200
TPN/PPN 528 / 528
Lipids 528 / 528
Output:
Gastrointestinal tube output ( 125 / 125
Total)
[place] Sump 125 / 125
Other:
Number of approximated MODERATE 2
amounts of urine
Number of approximated LARGE 1
amounts of urine
Vital Signs
Temp Pulse Resp BP Pulse Ox
97.9 F 80 14 134/83 97
01/28/25 23:47 01/28/25 23:47 01/28/25 23:47 01/28/25 23:47 01/28/25 23:47
Lab Results
01/28/25 05:47
01/29/25 05:22
Calcium 9.2 mg/dl (8.4-10.2) 01/29/25 05:22
Phosphorus 3.9 mg/dl (2.5-4.5) 01/29/25 05:22
Magnesium 2.1 mg/dl (1.6-2.3) 01/29/25 05:22
Total Bilirubin 0.9 mg/dl (0.2-1.3) 01/29/25 05:22
AST 117 U/L (14-36) H 01/29/25 05:22
ALT 180 U/L (0-35) H 01/29/25 05:22
Alkaline Phosphatase 106 U/L (38-126) 01/29/25 05:22
Total Protein 7.1 g/dl (6.3-8.2) 01/29/25 05:22
Albumin 4.0 g/dl (3.5-5.0) 01/29/25 05:22
Physical Exam
-
NAD AAOx3
NGT in place - bileous/gastric contents
ABD soft, mild tenderness to epigastrium, nd
Patient has a kebede catheter: No
Patient has a central line: Yes
[2025-01-29] MEDS: PROTONIX IV 40 MG IV ×2 (08:59→20:42)
[2025-01-29] MEDS: NSS (PRESERVATIVE FREE) 10 ML IV ×2 (09:00→20:42)
[2025-01-29 09:03] LABS: Glucose - Point of Care 123 mg/dl (70-99)
--- NOTE | 2025-01-29 10:33 | W.PN.HOSP.TC ---
Today's Communication/Plan
-
.
Assessment / Plan
Assessment / Plan
Physical exam:
General: Well Developed, Well Nourished and No Apparent Distress
HEENT: Normocephalic, Moist mucous membranes and Atraumatic. NG tube. Pic line left upper arm.
Respiratory: Clear
Cardiac: S1/S2
GI: Soft, not tender, Non Distended and good Bowel Sounds
Musculoskeletal: No Edema
Neuro: Nonfocal/grossly intact
Psych: no agitation
44 y/o female with contained penetrating posterior duodenal ulcer
# NPO status, we are expecting extended time for NPO status , d/w surgery
s/p Pic line 01/24, and TPN
d/w nutrition,adjusted TPN orders
Blood glucose seems well-controlled and patient prefers to avoid insulin, decreased Accu-Chek to BID.
# Hypokalemia, replaced
# mild thrombophlebitis noted on right arm and left arm after IV peripheral access. Looks back to normal skin with no redness.
#Acute duodenal ulcer
Duodenitis/ulcer with contained perforation
met sepsis criteria on admission POA
Good clinical improvement in last 48 hours.
Localized peritonitis
continue NGT decompression and bowel rest
Status post Protonix drip, now on IV Protonix
WBC is normal.
No fevers
Lipase around 500
Send stool for H Pylori, if positive: helpful , if negative could be false negative.
Upper GI series showed persistent leak, c/w c/w bowel rest and PPI , repeat study 01/29
continue Zosyn #9 day
Followed by surgery and GI doctors. GI signed off for now
Appreciate GI & surgery help
# GERD and gallstones status postcholecystectomy 2012
c/w IV PPI gtt
Total time spent to see the patient, examine the patient, review data and lab results, discuss treatment plan with patient and nursing staff around 55 minutes
Anticipated Discharge: > 48 hours
Subjective/Interval History
-
Date of Service: January 29, 2025
No current abdominal pain
No fevers
Objective Data
-
Labs:
Laboratory Results
01/29/25
05:22
Sodium 139
Potassium 4.4
Chloride 108 H
Carbon Dioxide 25
BUN 14
Creatinine 0.8
Glucose 118 H
Calcium 9.2
Total Bilirubin 0.9
AST 117 H
ALT 180 H
Alkaline Phosphatase 106
Vital Signs:
Vital Signs
Temp Pulse Resp BP Pulse Ox
98 F 68 16 131/80 99
01/29/25 07:00 01/29/25 07:00 01/29/25 07:00 01/29/25 07:00 01/29/25 07:00
I&O
01/28/25 01/29/25 01/30/25
06:59 06:59 06:59
Intake Total 100 / 100 1256 / 1256
Output Total 125 / 125
Balance 100 / 100 1131 / 1131
--- NOTE | 2025-01-29 12:53 | W.PN.UPDATE ---
Update Note
Progress Note Update
S: Pt presented with contained penetrating posterior perforated duodenal ulcer in the proximal portion of D3.
B: Attempted UGI testing today to evaluate for resolution but unable to be done as NGT noted to be advanced beyond affected portion of the duodenum with contrast administration
A: NGT pulled back 15cm to 65cm at the level of the nare.
R: Will check CXR for placement today and reattempt UGI tomorrow
--- NOTE | 2025-01-29 16:09 | CM ---
Chart reviewed. Care ongoing at this time.
Patient still has NG and is receiving TPN
Reattempt UGI tomorrow
Plan: Home, CM will cont to follow patient progress
[2025-01-29 16:15] VITALS: BP 127/80
[2025-01-29] MEDS: Parenteral Nutrition, Central 1040 IV (20:36)
[2025-01-29 21:12] LABS: Glucose - Point of Care 80 mg/dl (70-99)
[2025-01-29] MEDS: NSS (PRESERVATIVE FREE) 0.25 ML IV (22:19)
[2025-01-29] MEDS: ATIVAN 0.5 MG IV (22:19)
[2025-01-29 23:17] VITALS: BP 135/88
[2025-01-30] MEDS: ZOSYN 50 IV ×2 (02:30→08:03)
[2025-01-30 05:28] LABS: Mean Corp Hgb Conc. 33.3 g/dL (33.0-37.0); Mean Corpuscular Hgb 30.2 pg (27.0-31.0); Mean Corpuscular Volume 90.7 fL (81.0-99.0); Mean Platelet Volume 9.7 fL (7.4-10.4); Platelet Count 301 10^3/uL (130-400); Red Blood Cell Count 4.63 10^6/uL (4.20-5.40); Red Cell Dist. Width 13.5 % (11.5-14.5); White Blood Cell Count 10.6 10^3/uL (4.8-10.8)
[2025-01-30 06:00] VITALS: BMI 32.0
[2025-01-30 06:03] LABS: ALT (SGPT) 185 U/L (0-35); AST (SGOT) 87 U/L (14-36); Albumin 4.3 g/dl (3.5-5.0); Alkaline Phosphatase 109 U/L (38-126); Blood Urea Nitrogen 15 mg/dl (7-17); Calcium 9.6 mg/dl (8.4-10.2); Carbon Dioxide 24 mmol/L (22-30); Chloride 107 mmol/L (98-107); Estimated Creatinine Clearance 90 ml/min; Glucose 110 mg/dl (70-99); Lipase 587 U/L (23-300); Magnesium 2.2 mg/dl (1.6-2.3); Potassium 4.3 mmol/L (3.5-5.1); Sodium 140 mmol/L (135-145); Total Bilirubin 0.9 mg/dl (0.2-1.3); Total Protein 7.6 g/dl (6.3-8.2); eGFR > 60.00
[2025-01-30 07:02] VITALS: BP 133/83
[2025-01-30] MEDS: NSS (PRESERVATIVE FREE) 10 ML IV ×2 (08:02→20:27)
[2025-01-30] MEDS: PROTONIX IV 40 MG IV ×2 (08:03→20:27)
[2025-01-30 08:14] LABS: Glucose - Point of Care 133 mg/dl (70-99)
[2025-01-30] MEDS: OFIRMEV 100 IV (11:01)
--- NOTE | 2025-01-30 11:58 | W.PN.GS2 ---
Today's Communication / Plan
-
NG tube removed at bedside
Continue Protonix, can transition to oral
Okay to stop antibiotics
Okay for clears, will plan to advance to a full liquid diet and stop TPN tomorrow.
Anticipate discharging her home tomorrow on a full liquid diet for 1 week
She can follow-up with me as an outpatient as needed
She will need to follow-up with GI for an outpatient endoscopy
Assessment / Plan
-
Assessment: 44 yo female admitted with contained penetrating posterior perforated duodenal ulcer in the proximal portion of D3 which was remonstrated on the upper GI 01/23/2025. Unfortunately her upper GI on 01/29/2025 could not be read accurately
due to migration of the NG tube, this was pulled back and a repeat upper GI was performed today which demonstrated no active leak.
NG tube removed at bedside
Continue Protonix, can transition to oral
Okay to stop antibiotics
Okay for clears, will plan to advance to a full liquid diet and stop TPN tomorrow.
Anticipate discharging her home tomorrow on a full liquid diet for 1 week
She can follow-up with me as an outpatient as needed
She will need to follow-up with GI for an outpatient endoscopy
Time Spent
Total Time Spent with Patient (in minutes): 20
Subjective Data
-
Date of Service: January 30, 2025
Interval Events:
No acute events overnight. Slept well. Pain Controlled. Denies Nausea/Vomiting, +bowel function.
Objective Data
-
Intake and Output
01/29/25 01/30/25 01/31/25
06:59 06:59 06:59
Intake Total 1256 / 1256 678 / 678
Output Total 125 / 125 275 / 275
Balance 1131 / 1131 403 / 403
Intake:
IV piggybacks 200 / 200 150 / 150
TPN/PPN 528 / 528 528 / 528
Lipids 528 / 528
Output:
Gastrointestinal tube output ( 125 / 125 275 / 275
Total)
[place] Sump 125 / 125 275 / 275
Other:
Number of approximated MODERATE 3
amounts of urine
Number of approximated LARGE 1
amounts of urine
Vital Signs
Temp Pulse Resp BP Pulse Ox
98.4 F 79 18 133/83 97
01/30/25 07:02 01/30/25 07:02 01/30/25 07:02 01/30/25 07:02 01/30/25 08:35
Lab Results
01/30/25 05:00
01/30/25 05:00
Calcium 9.6 mg/dl (8.4-10.2) 01/30/25 05:00
Phosphorus 3.9 mg/dl (2.5-4.5) 01/29/25 05:22
Magnesium 2.2 mg/dl (1.6-2.3) 01/30/25 05:00
Total Bilirubin 0.9 mg/dl (0.2-1.3) 01/30/25 05:00
AST 87 U/L (14-36) H 01/30/25 05:00
ALT 185 U/L (0-35) H 01/30/25 05:00
Alkaline Phosphatase 109 U/L (38-126) 01/30/25 05:00
Total Protein 7.6 g/dl (6.3-8.2) 01/30/25 05:00
Albumin 4.3 g/dl (3.5-5.0) 01/30/25 05:00
Physical Exam
-
GENERAL/NEURO: Awake, Alert, no distress
CHEST: Unlabored breathing on RA
ABDOMEN: Soft, Non-Tender, Non-Distended, NG tube bilious removed about bedside
Patient has a kebede catheter: No
Patient has a central line: No
--- NOTE | 2025-01-30 14:15 | W.PN.HOSP.TC ---
Today's Communication/Plan
-
NGT removal
CLD if can tolerate
stop abx
Assessment / Plan
Assessment / Plan
Physical exam:
General: Well Developed, Well Nourished and No Apparent Distress
HEENT: Normocephalic, Moist mucous membranes and Atraumatic. NG tube. Pic line left upper arm.
Respiratory: Clear
Cardiac: S1/S2
GI: Soft, not tender, Non Distended and good Bowel Sounds
Musculoskeletal: No Edema
Neuro: Nonfocal/grossly intact
Psych: no agitation
44 y/o female with contained penetrating posterior duodenal ulcer
# NPO status, we are expecting extended time for NPO status , d/w surgery
s/p Pic line 01/24, and TPN
d/w nutrition,adjusted TPN orders
Blood glucose seems well-controlled and patient prefers to avoid insulin, decreased Accu-Chek to BID.
NGT removal today
-full liquid diet for 1 week
-She will need to follow-up with GI for an outpatient endoscopy
-Continue Protonix, can transition to oral
# Hypokalemia, replaced
# mild thrombophlebitis noted on right arm and left arm after IV peripheral access. Looks back to normal skin with no redness.
#Acute duodenal ulcer
Duodenitis/ulcer with contained perforation
met sepsis criteria on admission POA
Good clinical improvement in last 48 hours.
Localized peritonitis
continue NGT decompression and bowel rest
Status post Protonix drip, now on IV Protonix
WBC is normal.
No fevers
Lipase around 500
Send stool for H Pylori, if positive: helpful , if negative could be false negative.
Upper GI series showed persistent leak, c/w c/w bowel rest and PPI , repeat study 01/29
Day 10 of abx - can stop
-Okay for clears, will plan to advance to a full liquid diet and stop TPN tomorrow.
-NGT removal today
-full liquid diet for 1 week
-She will need to follow-up with GI for an outpatient endoscopy
-Continue Protonix, can transition to oral
Followed by surgery and GI doctors. GI signed off for now
Appreciate GI & surgery help
# GERD and gallstones status postcholecystectomy 2012
c/w IV PPI gtt
Anticipated Discharge: Within 24 hours
Subjective/Interval History
-
Date of Service: January 30, 2025
NGT removal today
Objective Data
-
Labs:
Laboratory Results
01/30/25
05:00
WBC 10.6
Hgb 14.0
Hct 42.0
Plt Count 301
Sodium 140
Potassium 4.3
Chloride 107
Carbon Dioxide 24
BUN 15
Creatinine 0.8
Glucose 110 H
Calcium 9.6
Total Bilirubin 0.9
AST 87 H
ALT 185 H
Alkaline Phosphatase 109
Vital Signs:
Vital Signs
Temp Pulse Resp BP Pulse Ox
98.4 F 79 18 133/83 97
01/30/25 07:02 01/30/25 07:02 01/30/25 07:02 01/30/25 07:02 01/30/25 08:35
I&O
01/29/25 01/30/25 01/31/25
06:59 06:59 06:59
Intake Total 1256 / 1256 678 / 678
Output Total 125 / 125 275 / 275
Balance 1131 / 1131 403 / 403
Review of Systems
-
History Source: Patient
All other systems: Not reviewed unless documented
Data Reviewed
-
Labs: Labs Reviewed by me
[2025-01-30 15:28] VITALS: BP 141/91
--- NOTE | 2025-01-30 15:45 | CM ---
CM reviewed chart, NGT removed, plan advance diet to full liquids tomorrow. CM will continue to follow for all discharge planning needs.
Plan; home with family, no needs.
[2025-01-30] MEDS: ATIVAN 0.5 MG IV (21:40)
[2025-01-30] MEDS: NSS (PRESERVATIVE FREE) 0.25 ML IV (21:41)
[2025-01-30 23:06] VITALS: BP 132/91
[2025-01-31 04:33] LABS: Hemoglobin 13.6 g/dL (12.0-16.0); Mean Corpuscular Hgb 30.8 pg (27.0-31.0); Mean Corpuscular Volume 90.7 fL (81.0-99.0); Mean Platelet Volume 9.8 fL (7.4-10.4); Platelet Count 289 10^3/uL (130-400); Red Blood Cell Count 4.41 10^6/uL (4.20-5.40); Red Cell Dist. Width 13.5 % (11.5-14.5); White Blood Cell Count 9.7 10^3/uL (4.8-10.8)
[2025-01-31 07:15] VITALS: BP 134/80
--- NOTE | 2025-01-31 08:20 | W.PN.GS2 ---
Today's Communication / Plan
-
FLD
DC home later today on protonix 40mg BID
Assessment / Plan
-
Assessment: 44 yo female admitted with contained penetrating posterior perforated duodenal ulcer in the proximal portion of D3 which was remonstrated on the upper GI 01/23/2025. Repeat upper GI was performed yesterday demonstrated no active leak.
NG tube removed at bedside yesterday, no issues since, moo cld
Continue PO protinix 40mg BID
Okay to stop antibiotics
Adv to FLD, stop TPN
For DC her home today on a full liquid diet for 1 week pending tolerance of FLD, advised to avoid carbonation and acidic beverages
F/U GS PRN
Discussed importance of follow-up with GI for outpatient endoscopy
Subjective Data
-
Date of Service: January 31, 2025
AFVSS, moo cld without issue, endorses mild nausea that is improved, endorses mild abd pain that is improved
Objective Data
-
Intake and Output
01/30/25 01/31/25 02/01/25
06:59 06:59 06:59
Intake Total 678 / 678 480 / 480
Output Total 275 / 275
Balance 403 / 403 480 / 480
Intake:
Oral fluids 480 / 480
IV piggybacks 150 / 150
TPN/PPN 528 / 528
Output:
Gastrointestinal tube output ( 275 / 275
Total)
[place] Sump 275 / 275
Other:
Number of approximated MODERATE 3 2
amounts of urine
Vital Signs
Temp Pulse Resp BP Pulse Ox
98.2 F 70 18 134/80 96
01/31/25 07:15 01/31/25 07:15 01/31/25 07:15 01/31/25 07:15 01/31/25 07:15
Lab Results
01/31/25 04:17
01/30/25 05:00
Calcium 9.6 mg/dl (8.4-10.2) 01/30/25 05:00
Phosphorus 3.9 mg/dl (2.5-4.5) 01/29/25 05:22
Magnesium 2.2 mg/dl (1.6-2.3) 01/30/25 05:00
Total Bilirubin 0.9 mg/dl (0.2-1.3) 01/30/25 05:00
AST 87 U/L (14-36) H 01/30/25 05:00
ALT 185 U/L (0-35) H 01/30/25 05:00
Alkaline Phosphatase 109 U/L (38-126) 01/30/25 05:00
Total Protein 7.6 g/dl (6.3-8.2) 01/30/25 05:00
Albumin 4.3 g/dl (3.5-5.0) 01/30/25 05:00
Physical Exam
-
Gen: NAD
Abd: soft, mild ttp to epigastrium
Patient has a kebede catheter: No
Patient has a central line: Yes (PICC)
[2025-01-31] MEDS: NSS (PRESERVATIVE FREE) 10 ML IV (08:38)
[2025-01-31] MEDS: PROTONIX IV 40 MG IV (08:38)
--- NOTE | 2025-01-31 12:25 | CM ---
CM reviewed chart, patient seen bedside, for discharge today. Patient confirms [id number] will provide transportation home, denies needs from CM. Will continue to follow for all discharge planning needs.
Plan; home with family, no needs
--- NOTE | 2025-01-31 12:40 | W.PN.HOSP.TC ---
Addendum entered and electronically signed by Rasta Sousa MD 01/31/25 15:12:
[id number]
Addendum entered and electronically signed by Rasta Sousa MD 01/31/25 13:08:
#Transaminitis
Is mostly secondary to TPN versus antibiotics
Improving
Follow-up outpatient
Original Note:
Today's Communication/Plan
-
FLD, avoid carbonated and acidic drinks
PPI BID
F/u GI, Surgery, PCP outpt
f/u CBC, LFTs outpatient
Assessment / Plan
Assessment / Plan
Physical exam:
General: Well Developed, Well Nourished and No Apparent Distress
HEENT: Normocephalic, Moist mucous membranes and Atraumatic. NG tube. Pic line left upper arm.
Respiratory: Clear
Cardiac: S1/S2
GI: Soft, not tender, Non Distended and good Bowel Sounds
Musculoskeletal: No Edema
Neuro: Nonfocal/grossly intact
Psych: no agitation
44 y/o female with contained penetrating posterior duodenal ulcer
# NPO status, we are expecting extended time for NPO status , d/w surgery
s/p Pic line 01/24, and TPN
d/w nutrition,adjusted TPN orders
Blood glucose seems well-controlled and patient prefers to avoid insulin, decreased Accu-Chek to BID.
NGT removal today
-full liquid diet for 1 week
-She will need to follow-up with GI for an outpatient endoscopy
-Continue Protonix, can transition to oral BID outpatient
# Hypokalemia, replaced
# mild thrombophlebitis noted on right arm and left arm after IV peripheral access. Looks back to normal skin with no redness.
#Acute duodenal ulcer
Duodenitis/ulcer with contained perforation
met sepsis criteria on admission POA
Good clinical improvement in last 48 hours.
Localized peritonitis
NGT for decompression removed
Status post Protonix drip, now on IV Protonix
WBC is normal.
No fevers
Lipase around 500
Send stool for H Pylori, if positive: helpful , if negative could be false negative.
Upper GI series showed persistent leak, c/w c/w bowel rest and PPI , repeat study 01/29
Day 10 of abx - can stop
-full liquid diet for 1 week
-She will need to follow-up with GI for an outpatient endoscopy
-Continue Protonix, can transition to oral
Followed by surgery and GI doctors. GI signed off for now
Appreciate GI & surgery help
# GERD and gallstones status postcholecystectomy 2012
c/w IV PPI gtt
More than 30 minutes spent in discharge including
Final examination of the patient
Summarizing hospital stay
Instructions for continuing care to all relevant caregivers
Preparation of discharge records, prescriptions, and referral forms
Total time spent (in minutes): 36
Anticipated Discharge: Today
Subjective/Interval History
-
Date of Service: January 31, 2025
tolerating FLD
Objective Data
-
Labs:
Laboratory Results
01/31/25
04:17
WBC 9.7
Hgb 13.6
Hct 40.0
Plt Count 289
Vital Signs:
Vital Signs
Temp Pulse Resp BP Pulse Ox
98.2 F 70 18 134/80 96
01/31/25 07:15 01/31/25 07:15 01/31/25 07:15 01/31/25 07:15 01/31/25 08:40
I&O
01/30/25 01/31/25 02/01/25
06:59 06:59 06:59
Intake Total 678 / 678 480 / 480
Output Total 275 / 275
Balance 403 / 403 480 / 480
Review of Systems
-
History Source: Patient
All other systems: Not reviewed unless documented
Data Reviewed
-
Labs: Labs Reviewed by me
--- NOTE | 2025-01-31 12:44 | W.DS.TRANS ---
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
-
Discharge Instructions:
Discharge Diagnosis/Procedures Contained duodenal perforation
Diet Other diet
Additional Diets Full Liquid - full liquid diet for 1 week
Foods and liquids allowed on the full liquid
diet includes all foods allowed on the clear
liquid diet (popsicles, clear juice without pulp
, plain gelatin, ice chips, water, sweetened tea
or coffee (no creamer), popsicles, clear broths
, flavored water and water) along with thin warm
cereal (or gruel), strained cream soups, juices
(including nectars), milkshakes, custard,
puddings and liquid nutritional supplements.
Avoid carbonated, acidic, and very hot beverages
.
You can not eat solid foods when you are on a
full liquid diet. Avoid sharp foods such as
chips.
Activity No restrictions,Other activity
Additional Activity No contact sports
Driving Restrictions As prior to admission
Bathing Restrictions OK to Shower
Blood Work LFTs, CBC in 1 week with PCP
Instructions:
Stand-Alone Forms:
Changes to Home Medications: Yes
Discharge Medications:
DC Medications w/original date entered in [employer]
pantoprazole 40 mg tablet,delayed release 40 mg PO Q12H 30 days #60 tabs 01/31/25
Home Medication Changes
pantoprazole 40 mg tablet,delayed release 40 mg PO Q12H 30 days #60 tabs 01/31/25
Pending Results: No
[2025-01-31 13:18] VITALS: BP 146/98
[2025-02-01 01:26] LABS: H. pylori Antigen, Fecal Negative (Negative)
== END 2025-01-31 14:22 | disposition home or self-care (01) | DRG 871 ==
LOC: 4 WEST ACU 08:40
PROVIDERS: Emergency Medicine; Internal Medicine; Radiology Vascular & Interventional Radiology; Registered Nurse; Surgery; ADMITTING PHYSICIAN Internal Medicine; ATTENDING PHYSICIAN Internal Medicine; CONSULT PHYSICIAN Internal Medicine Gastroenterology; EMERGENCY PHYSICIAN Emergency Medicine; OTHER PHYSICIAN Surgery
PROC: B5181ZA Fluoroscopy of Superior Vena Cava using Low Osmolar Contrast, Guidance (ICD-10-PCS; 2025-01-24)
PROC: 02HV33Z Insertion of Infusion Device into Superior Vena Cava, Percutaneous Approach (ICD-10-PCS; 2025-01-24)
DX: A41.9 Sepsis, unspecified organism (principal); K26.5 Chronic or unspecified duodenal ulcer with perforation; K85.90 Acute pancreatitis without necrosis or infection, unspecified; K21.9 Gastro-esophageal reflux disease without esophagitis; E87.6 Hypokalemia; K29.80 Duodenitis without bleeding; I80.9 Phlebitis and thrombophlebitis of unspecified site; G89.29 Other chronic pain; M25.50 Pain in unspecified joint; Z87.442 Personal history of urinary calculi; Z88.1 Allergy status to other antibiotic agents; Z88.2 Allergy status to sulfonamides; Z88.5 Allergy status to narcotic agent; Z90.49 Acquired absence of other specified parts of digestive tract; Z91.041 Radiographic dye allergy status
CPT/HCPCS: 71045; 74177; 74240; 80048; 80053; 81003; 81015; 82962; 83036; 83690; 83735; 84100; 84478; 84703; 85025; 85027; 87338; 96361; 96374; 96375; 99285; Q9967

== ENCOUNTER 2025-03-13 06:26 | Day surgery (SDC) | payer OTHER, SELFPAY | END 2025-03-13 12:52 | disposition home or self-care (01) | LOC: GI 06:26 | PROVIDERS: ATTENDING PHYSICIAN Internal Medicine Gastroenterology | DX: K44.9 Diaphragmatic hernia without obstruction or gangrene (principal); K31.89 Other diseases of stomach and duodenum; Z87.11 Personal history of peptic ulcer disease | CPT/HCPCS: 43239; 88305; 88341; 88342 ==

== ENCOUNTER 2025-05-16 06:28 | Day surgery (SDC) | payer OTHER, SELFPAY | END 2025-05-16 12:20 | disposition home or self-care (01) | LOC: GI 06:28 | PROVIDERS: ATTENDING PHYSICIAN Internal Medicine Gastroenterology | DX: Z12.11 Encounter for screening for malignant neoplasm of colon (principal); D12.3 Benign neoplasm of transverse colon | CPT/HCPCS: 45380; 88305 ==